=== PATIENT | female | born 1985 | race American Indian/Alaskan Native ===

== ENCOUNTER 2017-02-05 22:39 | Inpatient (IN) | payer OTHER ==
[2017-02-05] MEDS ORDERED: Nalbuphine 10 MG/1 ML Vial IM ONE ×2 (23:46→23:49)
[2017-02-06] MEDS ORDERED: Misoprostol 400 MCG (4 X 100 MCG TAB) RECTAL PRN (01:21)
[2017-02-06] MEDS ORDERED: Methylergonovine 0.2 MG/1 ML Amp IM PRN (01:21)
[2017-02-06] MEDS ORDERED: Lidocaine 1% 30 ML SDV INJECT PRN (01:21)
[2017-02-06] MEDS ORDERED: Penicillin G Potassium 5 MILLUNITS in Sodium Chloride 0.9% 100 ML IV ONE (01:21)
[2017-02-06] MEDS ORDERED: Lactated Ringers 500 ML IV ONE (01:21)
[2017-02-06] MEDS ORDERED: Acetaminophen 325 MG Tab PO PRN ×2 (01:21→16:56)
[2017-02-06] MEDS ORDERED: Sodium Chloride 0.9% 10 ML Syringe FLUSH PRN (01:21)
[2017-02-06] MEDS ORDERED: Carboprost Tromethamine 250 MCG/1 ML Amp IM PRN (01:21)
[2017-02-06] MEDS: Lactated Ringers 1,000 ML IV SCH ×5 (02:26→21:01)
[2017-02-06] MEDS: Penicillin G Potassium 3 MILLUNITS in Sodium Chloride 0.9% 100 ML IV SCH ×4 (04:34→14:33)
--- NOTE | 2017-02-06 06:04 | HP ---
CHIEF COMPLAINT: Increased force and frequency of contractions. HISTORY OF PRESENT ILLNESS: The patient is a 31-year-old, G1, P0, currently at 38 and 0/7th weeks based on 17-week ultrasound, who was seen in the office yesterday complaining of contractions that had started about 3 o'clock in the morning about every 8-10 minutes, mostly in her back and rating as high as an 8/10 in intensity, but looks fairly comfortable during the clinic visit, and cervix was 3 cm dilated, 75% effaced. She presents back to Labor and Delivery late in the night reporting increased force and frequency of contractions and increase in the back pain and even more in the front abdomen. No leakage of fluid or vaginal bleeding. movement has been good. She is now much more uncomfortable with these contractions and in much more pain overall consistent with labor. Cervix examined by the nurse and remained essentially unchanged from the clinic visit, so she was given 20 mg of Nubain IM which helped her to be able to relax a little bit and relieve her of some of the pain. I rechecked her cervix, and she is about 4+ cm dilated, therefore being admitted to the hospital for labor. course has been good and overall fairly unremarkable. She has gestational diabetes, but has had very well diet controlled. She is group B strep positive and aware that she needs antibiotics in Labor, and now plans on . labs show blood type O positive, rubella nonimmune, RPR nonreactive. Urine culture was negative. Hepatitis B negative. HIV negative. Gonorrhea and chlamydia negative. TSH normal. Hepatitis C negative. Wet prep negative. Glucose tolerance test, the screen was 157, the 3-hour test abnormal for 1-hour of 195 and a 2-hour of 159. She did not have a quad screen performed, and she is group B strep positive as listed. Medication exposures this include acyclovir, vitamins, Flonase, Benadryl, Augmentin, Acanya, and Diflucan. PAST MEDICAL HISTORY: Has ears pierced. No tattoos, IV drug use, or prior transfusions. Had chickenpox as a child. Does not tolerate hormonal contraceptives well. Has a history of kidney stones, obesity. Menarche at age 13 with menses every 30 days and a history of recurrent cold sores, which are limited to the oral area and no herpetic lesions of the genitalia. PAST SURGICAL HISTORY: Cholecystectomy in 2002. FAMILY HISTORY: Father with kidney stones; heart disease requiring stenting at age 51; hypertension; and diabetes. Mother with kidney stones, diabetes, antiphospholipid antibody syndrome, stroke because of her clotting disorder as well as breast cancer diagnosed at age 53 which is during the course of this patient's . She has a sister with a history of recurrent miscarriages and diabetes. She has a brother with no known health problems. Maternal grandmother with type 2 diabetes, liver cancer as well as pancreas and small bowel. Maternal grandfather with diabetes and heart disease, he has 4 stents. Paternal grandmother with breast cancer and history of delivering twins. Paternal grandfather with a heart attack at age 52 and diabetes. SOCIAL HISTORY: The patient is to Hal, and they got in February of 2016. 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 Hal is an genetics teacher and teaches [place] in [place], grades 8 through 12. His family history overall is negative as well. MEDICATIONS: Currently include vitamin and just recently finished some acyclovir. ALLERGIES: Morphine causes shortness of breath, wheezing, chest tightness, blistering, skin eruptions, and [employer] also causes other reactions. REVIEW OF SYSTEMS: Denies any headaches, blurry vision, chest pain, shortness of breath, right upper quadrant pain, or change in her edema. No dysuria, constipation, diarrhea, vomiting, or blurry vision. No other reported new problems. PHYSICAL EXAMINATION: General: This is a pleasant well-appearing, 31-year-old female. Vital Signs: Blood pressure 127/78, pulse of 70, and temp 98.1. HEENT: Grossly unremarkable. Heart: Regular without obvious murmur. Lungs: Clear to auscultation bilaterally. Abdomen: Gravid, soft, nontender. Uterine contractions are tracing about every 4 to 5 minutes, and the patient appears very uncomfortable with these and much more intense than they were this afternoon. heart tracings 140 beats per minute at baseline with moderate [id number] variability and accelerations noted. Vaginal exam 3 cm, 75%, and -1 per nurse's exam. After I checked her again a couple of hours later, she was 4+ cm, about 75%, and -1 station, but bulging bag of water now palpated. Extremities: Trace edema. No erythema or tenderness noted. LABORATORIES: Hemoglobin is 12.5 and platelets 245. PLAN: The patient will be admitted to the hospital to Labor and Delivery after we get her penicillin going, I can perform artificial rupture to keep her labor progressing. Anticipate she will be wanting an intrathecal, but we will try to hold off on that as we can so as to hopefully avoid needing 2 intrathecals prior to delivery. The patient's position is currently OP, and I have counseled her and her family on this fact which unfortunately does frequently translate to a hard longer labor and more pushing and also increased risk of section. They verbalized understanding and her questions were answered. [facility] /[id number]
[2017-02-06] MEDS ORDERED: fentaNYL 100 MCG/2 ML SDV IVPUSH ONE ×2 (06:24→15:23)
[2017-02-06] MEDS: Ondansetron 4 MG/2 ML SDV IV PRN ×2 (06:43→11:43)
[2017-02-06] MEDS ORDERED: fentaNYL 100 MCG/2 ML SDV ONE ×2 (08:05→16:25)
[2017-02-06] MEDS ORDERED: Lidocaine 1% 30 ML SDV ONE (08:47)
[2017-02-06] MEDS ORDERED: fentaNYL 100 MCG/2 ML SDV ITHECAL ONE (09:00)
[2017-02-06] MEDS ORDERED: Phenylephrine 1% 10 MG/ML SDV ONE (09:04)
[2017-02-06] MEDS: Oxytocin/Normal Saline 30 UNIT/500 ML BAG IV SCH ×2 (09:23→18:45)
--- NOTE | 2017-02-06 09:24 | PCM.PRNOTE ---
- Free Text/Narrative Note: Called to place intrathecal for pain management in this labor patient. After consent signed, and monitors on, proceeded. With patient in sitting position, sterile prep/drape. Skin wheal at L3-4 and L4-5 with 1% lidocaine, LP X multiple attempts - 1st attempt at L4-5, positive clear CSF, but some blood tinge that d/t being unable to aspirate, was unable to clear, so moved to L3-4. Multiple attempts at this level, as unable to palpate spinous process there and pt unable to get into good position. After multiple attempts, positive, clear, free flowing CSF without paresthesia or heme, so 20 mcg sufenta plus 30 mcg of fentanyl plus 6 mg (0.8 ml) mpf hyperbaric 0.75% spinal marcaine plus 0.4 ml preservative free saline with epinephrine wash. FHT's stable, but SBP dropped to around 90, with HR above 100 so gave patient 100mcg of neosynephrine iv to good effect - SBP 130. Pt reported no discomfort with subsequent contractions.
--- NOTE | 2017-02-06 12:48 | PCM.POSTAN ---
POST ANESTHESIA ASSESSMENT - MENTAL STATUS Mental Status: alert - VITAL SIGNS Pulse Rate: 72 SaO2: 99 Blood Pressure: 127/76 Temperature: 37.7 C - RESPIRATORY Respiratory Status: respiratory rate WNL - CARDIOVASCULAR CV Status: pulse rate WNL - GASTROINTESTINAL GI Status: nauseau - PAIN Pain Score: 0 - POST OP HYDRATION Hydration Status: adequate & stable (iv fluids. tolerating ice chips. some nausea, partly relieved with medication No c/o PDPH at this time. At this time , no post anesthesia complications noted)
--- NOTE | 2017-02-06 13:02 | PN ---
DATE: 02/06/2017 SUBJECTIVE: The patient has been able to get some rest since having her intrathecal earlier this morning. Reports that the pain continues to be primarily in the back versus the contractions type of pain and becoming more tired and just generally a little frustrated with not having delivered as of yet. OBJECTIVE: Vital Signs have remained stable. Pulse of 83, blood pressure 121/78, and O2 saturations 99%. She is afebrile. monitoring strip shows baseline heart rate in the 150s with moderate [id number]-[id number] variability. Accelerations are noted, but also a number of variables. No decelerations. Judson tracing contractions with some difficulty about every 3-5 minutes, really depending on what part of the strip you look at. Cervix re-examined and essentially unchanged. She remains at 6 cm dilated, 90% effaced, and about -1 station right now. Artificial rupture of membranes was performed at 9:55 this morning with good return of clear fluid and this was after her intrathecal. Pitocin was also initiated at 9:22 and IUPC just placed here at approximately 12:25. Prior to placing the IUPC, I discussed with the patient and her , potential risks, indications, and benefits of IUPC placement including disturbance to the baby, potential uterine perforation, potential bleeding complications, also the need to further determine the strength of her contractions and if her labor is actually adequate enough to be anticipating vaginal delivery or if we need to push things further, also amnio infusion availability because of the variables. Discussed with her potential with proceeding for section if her labor is inadequate and we cannot get her into sufficient labor or if she is not in labor and we need to just stay at course. ASSESSMENT: 1. 1, para 0, currently at 38 weeks gestation, group B streptococcus positive and is receiving her penicillin for prophylaxis. Numerous variables on monitoring tracing, stage I labor is not progressing at this time. However, I strongly feel that is going to be because of insufficient contraction strength. 2. Rubella nonimmune. 3. Blood type O positive. 4. Diet-controlled gestational diabetes. 5. History of oral herpes. 6. Obesity. PLAN: We will see what the IUPC is getting for tracing of the contractions and increased Pitocin as we are able still trying for vaginal delivery. The patient and her 's questions have been answered. [facility] /[id number]
[2017-02-06] MEDS ORDERED: Sodium Chloride 0.9% 1,000 ML IV SCH (15:30)
[2017-02-06] MEDS ORDERED: Citric Acid/Sodium Citrate Solution 30 ML Cup PO ONE (16:03)
[2017-02-06] MEDS ORDERED: ceFAZolin 2 GM in Premix Bag 1 BAG IV ONE (16:03)
[2017-02-06] MEDS ORDERED: Oxytocin/Normal Saline 60 UNIT/1,000 ML BAG ONE (16:32)
[2017-02-06] MEDS ORDERED: Bupivacaine 0.75%/D5W 2 ML Amp ONE (16:44)
[2017-02-06] MEDS ORDERED: ePHEDrine 50 MG/ML SDV IVPUSH PRN (16:56)
[2017-02-06] MEDS ORDERED: Naloxone 2 MG/2 ML Syringe IVPUSH PRN (16:56)
[2017-02-06] MEDS ORDERED: Acetaminophen/oxyCODONE 325-5 MG Tab PO PRN (16:56)
[2017-02-06] MEDS ORDERED: Measles, Mumps & Rubella Vaccine 0.5 ML SDV SUBCUT ONE (16:56)
[2017-02-06] MEDS ORDERED: diphenhydrAMINE 50 MG/ML SDV IVPUSH PRN (16:56)
[2017-02-06] MEDS ORDERED: Ibuprofen 800 MG Tab PO PRN (16:56)
[2017-02-06] MEDS ORDERED: Phenylephrine 1% 10 MG/ML SDV IV ONE (17:14)
[2017-02-06] MEDS ORDERED: Propofol 200 MG/20 ML SDV IV ONE (17:14)
[2017-02-06] MEDS ORDERED: Ondansetron 4 MG/2 ML SDV IV ONE (17:14)
[2017-02-06] MEDS ORDERED: HYDROmorphone 1 MG/ML Syringe IV ONE (17:14)
[2017-02-06] MEDS ORDERED: Promethazine 25 MG/ML SDV IV ONE (17:14)
[2017-02-06] MEDS ORDERED: Lidocaine 2% 20 ML MDV INJECT ONE (17:14)
[2017-02-06] MEDS ORDERED: Succinylcholine 200 MG/10 ML MDV IV ONE (17:14)
[2017-02-06] MEDS ORDERED: Meperidine PF 50 MG/ML Syringe IV ONE (17:14)
[2017-02-06] MEDS ORDERED: Oxytocin/Normal Saline 30 UNIT/500 ML BAG IV ONE (17:14)
[2017-02-06] MEDS ORDERED: fentaNYL 100 MCG/2 ML SDV IV ONE (17:14)
[2017-02-06] MEDS ORDERED: Midazolam 1 MG/ML 2 ML SDV IV ONE (17:14)
[2017-02-06] MEDS ORDERED: Lactated Ringers 3,000 ML IV ONE (17:14)
[2017-02-06] MEDS ORDERED: Meperidine PF 50 MG/ML Syringe ONE (18:45)
[2017-02-06] MEDS ORDERED: HYDROmorphone 1 MG/ML Syringe ONE (19:10)
[2017-02-06] MEDS ORDERED: Promethazine 25 MG/ML SDV ONE (19:10)
[2017-02-06] MEDS ORDERED: Promethazine 25 MG/ML SDV IM PRN (19:50)
--- NOTE | 2017-02-06 20:17 | PCM.PREANE ---
Preanesthetic Assessment - Anesthesia/Transfusion/Family Hx Anesthesia History: Prior Anesthesia Without Reaction Family History of Anesthesia Reaction: No Transfusion History: No Prior Transfusion(s) Intubation History: Unknown - Review of Systems General: No Symptoms Pulmonary: No Symptoms Cardiovascular: No Symptoms Gastrointestinal: No symptoms Neurological: No Symptoms Other: Reports: None - Physical Assessment NPO Status Date: 02/06/17 NPO Status Time: 06:00 Pulse: 72 O2 Sat by Pulse Oximetry: 99 Respiratory Rate: 16 Blood Pressure: 127/76 Temperature: 37.7 C Vital Signs: Last Vital Signs Temp 36.9 C 02/06/17 20:00 Pulse 87 02/06/17 20:00 Resp 16 02/06/17 20:00 BP 131/74 02/06/17 20:00 Pulse Ox 100 02/06/17 18:45 Height: 1.68 m Weight: 92.079 kg ASA Class: 2 Mental Status: Alert & Oriented x3 Airway Class: Mallampati = 2 Dentition: Reports: Normal Dentition Thyro-Mental Finger Breadths: 3 Mouth Opening Finger Breadths: 3 ROM/Head Extension: Full Lungs: Clear to auscultation, Normal respiratory effort Cardiovascular: Regular Rate, Regular Rhythm - Lab Values: Laboratory Last Values WBC 14.0 10^3/uL (5.0-10.0) H 02/06/17 01:38 RBC 3.91 10^6/uL (4.2-5.4) L 02/06/17 01:38 Hgb 12.5 g/dL (12.0-16.0) 02/06/17 01:38 Hct 36.7 % (37.0-47.0) L 02/06/17 01:38 MCV 93.9 fL (80-100) 02/06/17 01:38 MCH 32.0 pg (27.0-34.0) 02/06/17 01:38 MCHC 34.1 g/dL (33.0-35.0) 02/06/17 01:38 Plt Count 245 10^3/uL (150-450) 02/06/17 01:38 Blood Type O POSITIVE 02/06/17 01:38 Gel Antibody Screen Negative 02/06/17 01:38 Crossmatch See Detail 02/06/17 01:38 - Allergies Allergies/Adverse Reactions: Allergies Allergy/AdvReac Type Severity Reaction Status Date / Time morphine Allergy Difficulty Verified 02/06/17 02:29 Breathing dairy Allergy Diarrhea Uncoded 05/14/15 16:23 - Blood Blood Available: No Product(s) Available: None - Anesthesia Plan Pre-Op Medication Ordered: Antacids - Acknowledgements Anesthesia Type Planned: General Anesthesia, Spinal Pt an Appropriate Candidate for the Planned Anesthesia: Yes Alternatives and Risks of Anesthesia Discussed w Pt/Guardian: Yes Pt/Guardian Understands and Agrees with Anesthesia Plan: Yes Additional Comments: Earlier Intrathecal attempt was difficult. Patient understands another attempt at Intrathecal for proposed Section will be made and general anesthesia will be second choice if Intrathecal attempt failed. Patient agrees. 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: , Other (See Below) Other OB/BYN History: hx ascus pap with hpv Endocrine/Metabolic History: Reports: Diabetes, Gestational Other Dermatologic History: acne, recurrent cold sores - Infectious Disease History Infectious Disease History: Reports: Chicken Pox - Past Surgical History GI Surgical History: Reports: Cholecystectomy - SUBSTANCE USE Smoking Status *Q: Never Smoker Tobacco Use Within Last Twelve Months: No Second Hand Smoke Exposure: No Days Per Week of Alcohol Use: 0 Recreational Drug Use History: No - HOME MEDS Home Medications: Home Meds Calcium Carbonate/Vitamin D3 [Calcium 500 + Vit D Caplet] 1 each PO DAILY [History] Vit W-Ca,Fe,FA(<1 mg) [ Vitamins] 1 each PO DAILY 12/19/16 [ History] - CURRENT (IN HOUSE) MEDS Current Meds: Current Medications Acetaminophen (Tylenol) 650 mg PO Q4H PRN PRN Reason: Pain (Mild 1-3) and fever Acetaminophen (Tylenol) 650 mg PO Q6H PRN PRN Reason: mild pain or fever Carboprost Tromethamine (Hemabate Ds) 250 mcg IM ASDIRECTED PRN PRN Reason: HEMORRHAGE Diphenhydramine HCl (Benadryl) 25 mg IVPUSH Q6H PRN PRN Reason: Itching or Nausea Docusate Sodium (Colace) 100 mg PO Q12H PRN PRN Reason: Constipation Ephedrine Sulfate (Ephedrine Sulfate) 5 mg IVPUSH SEECOMMENT PRN PRN Reason: Other Ferrous Sulfate (Ferrous Sulfate) 325 mg PO BRK L[place]RAINE Hydromorphone HCl (Dilaudid) 0.25 mg IVPUSH Q4H PRN PRN Reason: Pain (moderate 4-6) Lactated Ringer's (Ringers, Lactated) 1,000 mls @ 125 mls/hr IV ASDIRECTED [facility] Last Admin: 02/06/17 19:13 Dose: 125 mls/hr Penicillin G Potassium 3 (millunits/ Sodium Chloride) 100 mls @ 200 mls/hr IV Q4HR [facility] Last Admin: 02/06/17 14:33 Dose: 200 mls/hr Oxytocin/Sodium Chloride (Pitocin In Ns 30 Unit/500 Ml) 30 unit in 500 mls @ 500 mls/hr IV TITRATE LORRAINE; 500 MUNITS/MIN PRN Reason: Protocol Last Admin: 02/06/17 18:45 Dose: 125 mls/hr Sodium Chloride (Normal Saline) 1,000 mls @ 250 mls/hr IV ASDIRECTED [facility] Lactated Ringer's (Ringers, Lactated) 1,000 mls @ 125 mls/hr IV ASDIRECTED [facility] Ibuprofen (Motrin) 800 mg PO Q8H PRN PRN Reason: mild pain or fever Ketorolac Tromethamine (Toradol) 15 mg IVPUSH Q6H [facility] Stop: 02/07/17 05:01 Lidocaine HCl (Xylocaine-Mpf 1%) 10 ml INJECT ASDIRECTED PRN PRN Reason: Perineal Repair Methylergonovine Maleate (Methergine) 0.2 mg IM ASDIRECTED PRN PRN Reason: Hemorrhage Misoprostol (Cytotec) 800 mcg RECTAL ASDIRECTED PRN PRN Reason: Hemorrhage Naloxone HCl (Narcan) 0.1 mg IVPUSH SEECOMMENT PRN PRN Reason: Respiratory Depression Ondansetron HCl (Zofran) 4 mg IV Q4H PRN PRN Reason: Nausea/Vomiting Last Admin: 02/06/17 11:43 Dose: 4 mg Oxycodone/Acetaminophen (Percocet 325-5 Mg) 1 tab PO Q4H PRN PRN Reason: Pain (moderate 4-6) Oxycodone/Acetaminophen (Percocet 325-5 Mg) 2 tab PO Q4H PRN PRN Reason: Pain (moderate 4-6) Prenat Multivit/[place]/Iron/Folic Ac ( Plus Iron) 1 each PO DAILY L[facility]RAINE Promethazine HCl (Phenergan) 12.5 mg IM Q6H PRN PRN Reason: Nausea Simethicone (Simethicone) 80 mg PO Q4H PRN PRN Reason: Gas Sodium Chloride (Saline Flush) 10 ml FLUSH ASDIRECTED PRN PRN Reason: Keep Vein Open Discontinued Medications Bupivacaine HCl/Dextrose (Marcaine 0.75% Spinal) Confirm Administered Dose 2 ml .ROUTE .STK-MED ONE Stop: 02/06/17 16:45 Citric Acid/Sodium Citrate (Bicitra Solution) 30 ml PO ONETIME ONE Stop: 02/06/17 16:04 Fentanyl (Sublimaze) 50 mcg IVPUSH ONETIME ONE Stop: 02/06/17 06:25 Fentanyl (Sublimaze) Confirm Administered Dose 100 mcg .ROUTE .STK-MED ONE Stop: 02/06/17 08:06 Fentanyl (Sublimaze) 50 mcg IVPUSH ONETIME ONE Stop: 02/06/17 15:24 Last Admin: 02/06/17 15:45 Dose: 50 mcg Fentanyl (Sublimaze) Confirm Administered Dose 100 mcg .ROUTE .STK-MED ONE Stop: 02/06/17 16:26 Hydromorphone HCl (Dilaudid) Confirm Administered Dose 1 mg .ROUTE .STK-MED ONE Stop: 02/06/17 19:11 Lactated Ringer's (Ringers, Lactated) 500 mls @ 999 mls/hr IV .BOLUS ONE Stop: 02/06/17 01:51 Last Admin: 02/06/17 08:20 Dose: 999 mls/hr Penicillin G Potassium 5 (millunits/ Sodium Chloride) 100 mls @ 200 mls/hr IV ONETIME ONE Stop: 02/06/17 01:50 Last Admin: 02/06/17 02:26 Dose: 200 mls/hr Cefazolin Sodium/Dextrose 2 gm (/ Premix) 50 mls @ 100 mls/hr IV ONETIME ONE Stop: 02/06/17 16:32 Last Admin: 02/06/17 17:42 Dose: 100 mls/hr Oxytocin/Sodium Chloride (Pitocin In Ns 30 Unit/500 Ml) Confirm Administered Dose 60 unit in 1,000 mls @ as directed .ROUTE .STK-MED ONE Stop: 02/06/17 16:33 Ibuprofen (Motrin) 800 mg PO Q8H PRN PRN Reason: mild pain or fever Lidocaine HCl (Xylocaine-Mpf 1%) Confirm Administered Dose 30 ml .ROUTE .STK- MED ONE Stop: 02/06/17 08:48 Last Admin: 02/06/17 08:50 Dose: 30 ml Measles/Mumps/Rubella Vaccine Live (M-M-R Ii Vaccine) 0.5 ml SUBCUT .ONCE ONE Stop: 02/06/17 16:57 Meperidine HCl (Demerol) Confirm Administered Dose 50 mg .ROUTE .STK-MED ONE Stop: 02/06/17 18:46 Nalbuphine HCl (Nubain) 10 mg IM ONETIME ONE Stop: 02/05/17 23:47 Last Admin: 02/06/17 03:38 Dose: Not Given Nalbuphine HCl (Nubain) 20 mg IM ONETIME ONE Stop: 02/05/17 23:50 Last Admin: 02/05/17 23:59 Dose: 20 mg Phenylephrine HCl (Jong-Synephrine) Confirm Administered Dose 10 mg .ROUTE .STK- MED ONE Stop: 02/06/17 09:05 Promethazine HCl (Phenergan) Confirm Administered Dose 25 mg .ROUTE .STK-MED ONE Stop: 02/06/17 19:11 Sufentanil Citrate (Sufenta) Confirm Administered Dose 50 mcg .ROUTE .STK-MED ONE Stop: 02/06/17 08:06
[2017-02-06] MEDS: HYDROmorphone 1 MG/ML Syringe IVPUSH PRN (20:29)
[2017-02-06] MEDS: Acetaminophen/oxyCODONE 325-5 MG Tab PO PRN (21:44)
[2017-02-06] MEDS: Ferrous Sulfate 325 MG Tab PO SCH (23:18)
--- NOTE | 2017-02-07 00:11 | OR ---
DATE: 02/06/2017 PREPROCEDURE DIAGNOSES: 1. 1 para 0. 2. A 38 and 0/7th weeks by 17-week ultrasound. 3. Failure to progress in labor and deep recurrent variable. 4. Blood type O positive. 5. Rubella nonimmune. 6. Group B strep positive. 7. Gestational diabetes, diet controlled. 8. Oral herpes. 9. Obesity. 10.History of abnormal ASCUS on Pap smear. POSTPROCEDURE DIAGNOSES: 1. 1 para 1. 2. A 38 and 0/7th weeks by 17-week ultrasound. 3. Failure to progress in labor and deep recurrent variable. 4. Blood type O positive. 5. Rubella nonimmune. 6. Group B strep positive. 7. Gestational diabetes, diet controlled. 8. Oral herpes. 9. Obesity. 10.History of abnormal ASCUS on Pap smear. 11.Status post primary section with complicated uterine incision and delivery of viable female infant. BRIEF HISTORY: A 31-year-old female, admitted to the hospital last night for active labor which continued throughout the night and this morning, she was still a sitting around 5 cm dilated with regular contractions and primarily back labor. Since she was progressing at that time, an intrathecal was placed which was complicated and took about 45 minutes and then artificial rupture of membranes was performed, and the baby was doing well. Pitocin was initiated prior to artificial rupture and IUPC was placed as well. We were unable to get adequate MVUs. However, the cervix did not dilate beyond 6 to 7 cm and baby was not making any progress and continued to have deep variables. The patient was requesting additional pain medication and fentanyl was used and it really did not seem to help. After watching her for a few hours, she continued to make zero progress and decision was made to proceed with primary section with the details as below. CONSENT: Discussed with the patient, her , and mother. Indications, risks, benefits, and alternatives of primary section. Risk of infection, and plan for preoperative antibiotics. Risk of bleeding to the point of requiring a blood transfusion as well as its inherent risks. Risk of injury to any internal organs or adjacent structures including, but not limited to, large blood vessels, nerves, veins, fallopian tubes, ovaries, bladder, bowel adjacent structures, and even potential injury to the baby. Discussed possible for complications which would require transfer of mother and/or baby and even potential for . She agreed to proceed and appropriate consent forms were signed and can be found in the chart. Risk of procedure being done under general anesthesia if spinal cannot be obtained. SURGEON: Dr. Deya Bennett MD. PRODUCTION STAGE MANAGER: Dr. Myesha Caballero MD. A second assist called to the operating room in stat fashion to attend to the baby, Dr. Cali but he did not assist at the operating table. DESCRIPTION OF PROCEDURE: The patient was brought down to the operating room and attempt of spinal anesthesia was made and unsuccessful. We were notified that this would need to take place in a stat fashion. The patient was then laid in dorsal supine position with leftward tilt, and Brush indwelling catheter had already been in place. The abdomen was prepped in the usual fashion and drapes applied. General anesthesia was then obtained and uterine incision made at 1715 hours and carried down to the underlying fascia with blunt finger dissection. The fascia was incised with scalpel and extended bilaterally with blunt traction. Superior fascial edge elevated and rectus muscles dissected off bluntly. Inferior fascial edge grasped with Prasanna's, tented up, and rectus muscles dissected off bluntly. Rectus muscles in the midline with blunt finger dissection and peritoneal opening made with traction. Salty O retractor was placed and what was felt to be appropriate location for low uterine incision was made with scalpel and carried down with final penetration into the uterus with finger penetration and extended bilaterally using the Miranda method, attempted to bring the head up through the hysterotomy site which was unsuccessful being that we were under general anesthesia and time was of the essence. A superior T incision was then made with bandage scissors and another attempt was made to deliver the baby up through the hysterotomy site, which remained unsuccessful. The nurse put on a sterile glove and started to apply pressure to the head as well to bring it out of the pelvis while the assist was holding the baby up into the uterus to try to allow the head to come up. Dr. Caballero then made an attempt to deliver the baby from her side, and the superior T incision extended further. We were still unsuccessful. Then, the inferior uterus then underwent a T extension down toward the bladder reflection which was actually about 2.5 cm and at this point of time, I was able to deliver the head up through the hysterotomy site and then bring the baby out through the hysterotomy site. A three-vessel umbilical cord was clamped and cut and baby taken over to the warmer for further evaluation. Placenta was delivered by uterine massage and cord traction. Cord blood sample was not obtained. Hysterotomy sites were grasped with Pacheco to help control bleeding and uterus cleared of any clots and debris. Superior T extension was closed with a running lock stitch of 0 Vicryl in the usual fashion. There was some bleeding, so a second imbricating layer was placed and hemostasis appeared to be good at that time. Inferior T extension was then closed with a running lock stitch of 0 Vicryl in a typical fashion and this was also followed with a second running locked layer in order to ensure hemostasis. The normal low transverse uterine incision site was then closed by starting at the apex on the maternal right and coming into the midline, and then attention turned to the maternal left starting at the apex and a running lock stitch to the midline. There continued to be some additional sites of bleeding noted at this time on the superior T extension, so this was addressed with additional [id number] and running stitches as appropriate. The transverse incision still had some bleeding as well and so a second layer was placed across the transverse incision making sure to close the serosa and not leave any exposed myometrium. Bladder appeared to be uninjured and urine was lightly pink tinged, but no gross blood was noted and it was clearing nicely. After we felt hysterotomy site was hemostatic, the Salty retractor was removed and pericolic gutters were cleared of all clots and debris. Hysterotomy site then reinspected, irrigated, and hemostasis was good and I did do a couple of spots of cauterization to ensure adequate hemostasis of some small bleeders. We did take time to look at this carefully and ensure that it was good. The peritoneal layer was then closed in the midline with a running stitch of 1-0 Vicryl in a running fashion. This layer was then irrigated, cleared of any clots and debris, and the fascia closed with a running stitch of 0 looped PDS in the usual fashion. Subcutaneous tissue was then irrigated, cleared of any clots and debris, and verified to be hemostatic. The skin was then closed with makenna. The patient had overall tolerated the procedure well and vital signs have remained stable. Start time for surgery was 1715 hours. The baby delivered at 1719 hours and procedure stopped at 1829 hours. FLUIDS: 3450 mL of crystalloids including Pitocin. URINE OUTPUT: 900 mL clear. ESTIMATED BLOOD LOSS: 1000 mL. COMPLICATIONS: None. Great difficulty in delivering the baby out through the hysterotomy site and closed as noted above ending in good hemostatic closure. FINDINGS: Viable female infant, Apgars of 2, 5, and 9. Weight 2950 g, 6 pounds 8 ounces. Baby did require some positive pressure ventilation to help with resuscitation because of lack of respiratory effort. Heart rate remained above 100. DISPOSITION: Mother to go to the PACU at this time for recovery and then back to the room. Baby will be taken to the nursery for further evaluation. LENI /[id number] MTDD
[2017-02-07] MEDS: Lactated Ringers 1,000 ML IV SCH ×3 (00:23→18:30)
[2017-02-07] MEDS: HYDROmorphone 1 MG/ML Syringe IVPUSH PRN ×3 (00:29→10:36)
[2017-02-07] MEDS: Acetaminophen/oxyCODONE 325-5 MG Tab PO PRN ×5 (01:56→21:58)
[2017-02-07] MEDS ORDERED: Ketorolac 30 MG/ML SDV IVPUSH ONE (06:36)
[2017-02-07] MEDS: Ondansetron 4 MG/2 ML SDV IV PRN (06:40)
[2017-02-07] MEDS: Penicillin G Potassium 3 MILLUNITS in Sodium Chloride 0.9% 100 ML IV SCH ×2 (07:05→07:06)
[2017-02-07] MEDS: ceFAZolin 1 GM in Premix Bag 1 BAG IV SCH ×3 (07:40→22:19)
[2017-02-07] MEDS: Simethicone 80 MG Tab.Chew PO PRN ×4 (10:07→21:52)
[2017-02-07] MEDS: Ferrous Sulfate 325 MG Tab PO SCH (10:09)
--- NOTE | 2017-02-07 13:36 | PCM.POSTAN ---
POST ANESTHESIA ASSESSMENT - MENTAL STATUS Mental Status: alert, oriented - VITAL SIGNS Pulse Rate: 85 SaO2: 99 Resp Rate: 18 Blood Pressure: 128/72 Temperature: 97.8 C - RESPIRATORY Respiratory Status: respiratory rate WNL, airway patent, O2 saturation stable - CARDIOVASCULAR CV Status: pulse rate WNL, blood pressure stable - GASTROINTESTINAL GI Status: no symptoms, nauseau - PAIN Pain Score: 3 - POST OP HYDRATION Hydration Status: adequate & stable (iv fluids. tolerating ice chips. some nausea, partly relieved with medication No c/o PDPH at this time. At this time , no post anesthesia complications noted) - OBSERVATIONS Free Text/Narrative:: Patient is in bed c/o back pain her wound pain is under control. Moving her lower extremities and had a fair night.
[2017-02-07] MEDS: Ketorolac 30 MG/ML SDV IVPUSH SCH ×4 (14:04→23:25)
[2017-02-07] MEDS: Docusate Sodium 100 MG Cap PO PRN ×2 (14:05→21:52)
[2017-02-07] MEDS: Prenatal Multivitamin with Calcium/Folic Acid/Iron Tab PO SCH (14:53)
[2017-02-08] MEDS: Ketorolac 30 MG/ML SDV IVPUSH SCH (02:29)
[2017-02-08] MEDS: Simethicone 80 MG Tab.Chew PO PRN ×5 (02:35→19:35)
[2017-02-08] MEDS: Acetaminophen/oxyCODONE 325-5 MG Tab PO PRN ×4 (02:35→22:28)
[2017-02-08] MEDS ORDERED: Ibuprofen 800 MG Tab PO PRN (06:00)
--- NOTE | 2017-02-08 08:53 | PN ---
DATE: 02/07/2017 SUBJECTIVE: Postoperative day #1, 31-year-old female, status post primary section with complications including a cross type of uterine incision. The patient has not been up out of bed as would be expected, feels quite fatigued today. Denies any shortness of breath or chest pain. Not certain about any lightheadedness and she has not really been up yet. Brush catheter remains in place. She is working on breast-feeding and hoping that goes better. Otherwise, denies other acute concerns and mood remains positive, bleeding has been minimal, and she is passing some flatus. OBJECTIVE: Vital Signs: Temperature is 98.9, pulse 79, blood pressure 111/73, respiratory rate of 16, O2 saturations of 97% on room air. Heart: Regular without obvious murmur. Lungs: Clear to auscultation bilaterally. Abdomen: Soft and nontender. Positive bowel sounds are auscultated. Dressing is clean, dry, and intact. Fundus is firm and below the umbilicus. Extremities: SCDs and LIZ hose are on. Pedal pulses are equal. There is no edema or tenderness noted. LABORATORY DATA: Hemoglobin down to 8.3 today, platelets of 192, and white cell count of 14.7. ASSESSMENT: 1. Status post traumatic section. 2. Anemia of acute blood loss. 3. 1, now para 1. 4. Mild obesity. 5. History of oral herpes. PLAN: At this time, plan on normal postoperative cares today, anticipate that she will be up quite a bit more today and will be able to get the Brush catheter out and see how she does. Continue to recheck CBC as indicated and in the morning. Discussed with her there is still possibility of blood transfusion if she does not seem to be tolerating things very well from her blood loss. She verbalizes understanding hoping that she will not need the transfusion and she is less tired later today after she has some adequate rest. [facility] /[id number] ADIA
--- NOTE | 2017-02-08 08:56 | PN ---
DATE: 02/08/2017 Postoperative day #2. SUBJECTIVE: A 31-year-old female, status post complicated primary section 2 days ago, reports complaints of still feeling extreme fatigue and just not coming back from her surgery as would be expected. She was up twice last night, but not having enough energy to really feel like she could get around and nurses are also concerned that she is just not coming around the way that she should with her energy levels. She has a little bit of shortness of breath, but no chest pain. She has some lightheadedness and passing flatus. Brush catheter still in place. Working on breast-feeding with her baby and otherwise has no specific concerns or complaints. OBJECTIVE: Vital Signs: Temperature is 98.8, pulse 76, blood pressure 107/61, respiratory rate of 18, and O2 saturations 95% on room air. HEART: Regular without obvious murmur. LUNGS: Clear bilaterally. ABDOMEN: Soft, and bowel sounds are positive. The uterus is firm and below the umbilicus. Dressing is clean, dry, and intact. Vaginal bleeding has been reported as minimal. Extremities: SCDs are on. Pedal pulses are equal. No tenderness and no edema. LABORATORY DATA: Shows a hemoglobin this morning of 7.9, platelets of 200, white blood cell count of 15.3. ASSESSMENT: 1. Postoperative day #2, status post complicated section. 2. Anemia of acute blood loss, which is symptomatic and hemoglobin is less than 8. 3. 1, now para 1, delivered at 38 weeks' gestation. 4. History of gestational diabetes, diet controlled. 5. History of oral herpes. 6. Obesity. PLAN: At this time, we will order 2 units of packed red blood cells for transfusion. I have discussed with the patient indications risks, benefits, and alternatives. Her primary concern is potential for transfusion reaction. Discussed with her how that would be managed and it is a quite rare occurrence. Also, discussed with her potential for contraction of blood-borne disease such as HIV or hepatitis C and that the blood is screened very well and risk of that is also extremely low. Her questions have been answered and we will get the appropriate consent form in the chart. [facility] /[id number]
[2017-02-08] MEDS: Docusate Sodium 100 MG Cap PO PRN ×2 (09:23→19:37)
[2017-02-08] MEDS: Ferrous Sulfate 325 MG Tab PO SCH (09:23)
[2017-02-08] MEDS: Prenatal Multivitamin with Calcium/Folic Acid/Iron Tab PO SCH (09:24)
[2017-02-08] MEDS: Ibuprofen 800 MG Tab PO PRN ×2 (10:45→19:36)
[2017-02-09] MEDS: Ibuprofen 800 MG Tab PO PRN ×2 (04:09→12:37)
[2017-02-09] MEDS: Acetaminophen/oxyCODONE 325-5 MG Tab PO PRN ×3 (04:10→14:24)
[2017-02-09] MEDS: Docusate Sodium 100 MG Cap PO PRN (09:16)
[2017-02-09] MEDS: Ferrous Sulfate 325 MG Tab PO SCH (09:16)
[2017-02-09] MEDS: Prenatal Multivitamin with Calcium/Folic Acid/Iron Tab PO SCH (09:16)
[2017-02-09] MEDS: Simethicone 80 MG Tab.Chew PO PRN (09:23)
[2017-02-09 13:23] VITALS: BP 112/60
--- NOTE | 2017-02-20 08:28 | DISCH ---
ADMITTING DIAGNOSES: 1. 1, para 0. 2. A 38 and 0/7th weeks' gestation by 17-week ultrasound. 3. Gestational diabetes, diet controlled. 4. History of oral herpes. 5. Obesity. 6. Blood type O positive, rubella nonimmune, and group B strep positive. 7. Atypical squamous cells of undetermined significance on Pap smear. DISCHARGE DIAGNOSES: 1. 1, para 1-0-0-1. 2. A 38 and 0/7th weeks' gestation by 17-week ultrasound. 3. Gestational diabetes, diet controlled. 4. History of oral herpes. 5. Obesity. 6. Blood type O positive, rubella nonimmune, and group B strep positive. 7. Atypical squamous cells of undetermined significance on Pap smear. 8. Status post primary section with complicated uterine incision. 9. Failure to progress in stage I of labor. 10.Anemia of acute blood loss. 11.Status post blood transfusion. BRIEF HISTORY: A 31-year-old female, presented to the hospital with spontaneous onset of labor, which was augmented with Pitocin and artificial rupture of membranes performed and eventually IUPC placed. Despite this and active management of labor, we were unable to get her to stage II and after about 24 hours of stage I, proceeded with primary section. They were unable to obtain spinal anesthesia, so the procedure was performed under general and complicated by a transverse uterine incision that was higher than expected and ended up being extended superior and inferiorly in a T fashion, therefore making her a non- candidate. After surgery, she did well and her pain was managed. She was having symptoms of severe anemia and hemoglobin had dropped down to 7.9, and a blood transfusion ordered after which she started to feel better and final discharge hemoglobin of 10.0. Her admission hemoglobin was 12.5. On day of discharge, she was ambulating, tolerating regular diet, still complaining of being tired without having any shortness of breath or dizziness and managing her anemia fairly well. Bleeding had been minimal. She was bonding with her baby and struggling with . DISCHARGE CONDITION: Good. PHYSICAL EXAMINATION: Vital Signs: Temperature is 97.8, pulse 84, blood pressure 112/60, respiratory rate of 16, and O2 saturations 96% on room air. Heart: Regular without murmur. Lungs: Clear to auscultation bilaterally. Abdomen: Soft, nontender. Fundus is firm and below the umbilicus. Incision site is clean, dry, and intact. Extremities: Trace edema. No erythema or tenderness noted. DISPOSITION: Home with family. FOLLOWUP: She will be seen in the office in the next 5 to 7 days for recheck of her incision and staple removal. DISCHARGE INSTRUCTIONS: No lifting anything over 15 pounds and pelvic rest for [address] until she is off the narcotic. She needs to return if she has any foul-smelling drainage, discharge, fever, chills, increased pain, or other concerning symptoms. DISCHARGE MEDICATIONS: 1. Ibuprofen 600 mg every 6 hours as needed for pain. 2. Percocet 5/325 mg one to two tablets every 4 to 6 hours as needed for pain. 3. Colace 100 mg twice daily. 4. Iron 325 mg twice daily. 5. Vitamin C 500 mg twice daily. [facility] /[id number] MTDD
== END 2017-02-09 17:15 | disposition home or self-care (01) | DRG 765 ==
LOC: DL.OBCHECK 22:39 → DL.OB 02-06 01:27 → DL.MS 02-06 16:54 → OBSVTOIN 02-06 17:20
PROVIDERS: ADMIT Family Medicine; ATTEND Family Medicine
PROC: 10D00Z1 Extraction of Products of Conception, Low, Open Approach (ICD-10-PCS; principal; 2017-02-06)
PROC: 10907ZC Drainage of Amniotic Fluid, Therapeutic from Products of Conception, Via Natural or Artificial Opening (ICD-10-PCS; 2017-02-06)
PROC: 00HU33Z Insertion of Infusion Device into Spinal Canal, Percutaneous Approach (ICD-10-PCS; 2017-02-06)
PROC: 3E0R3CZ (ICD-10-PCS; 2017-02-06)
PROC: 30233N1 Transfusion of Nonautologous Red Blood Cells into Peripheral Vein, Percutaneous Approach (ICD-10-PCS; 2017-02-08)
DX: O99.824 Streptococcus B carrier state complicating childbirth (principal); D62 Acute posthemorrhagic anemia; Z3A.38 38 weeks gestation of pregnancy; Z37.0 Single live birth; O24.420 Gestational diabetes mellitus in childbirth, diet controlled; O99.214 Obesity complicating childbirth; E66.09 Other obesity due to excess calories; O62.0 Primary inadequate contractions; Z88.6 Allergy status to analgesic agent
CPT/HCPCS: 36415; 36430; 85027; 86850; 86900; 86901; 86920; 86922; 90707; A9270-GY; J0330; J0690; J1170; J1885; J2175; J2250; J2300; J2370; J2405; J2540; J2550; J2590; J2704; J3010; J7030; J7050; J7120; P9016

== ENCOUNTER 2018-01-03 12:14 | Emergency (ER) | payer OTHER ==
[2018-01-03 12:27] VITALS: BP 128/95
[2018-01-03 13:40] LABS: CHLORIDE,CL 106 mmol/L (101-111); SODIUM,NA 138 mmol/L (135-145)
--- NOTE | 2018-01-03 13:57 | EDM.PDOC ---
ED HPI GENERAL MEDICAL PROBLEM - General Chief Complaint: Respiratory Problem Stated Complaint: [id number] SOB Time Seen by Provider: 01/03/18 12:25 Source of Information: Reports: Patient History Limitations: Reports: No Limitations - History of Present Illness INITIAL COMMENTS - FREE TEXT/NARRATIVE: This 32 yo female patient reports to the ED with increased shortness of breath, head congestion and some numbness in her face. The patient reports she started to have symptoms while she was driving. The patient does not have a history of anxiety, but she has been under a lot of stress lately. 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 Onset: Today Duration: Minutes:, Improving Location: Reports: Face, Chest Quality: Reports: Other Severity: Moderate Improves with: Reports: None Worsens with: Reports: None Associated Symptoms: Reports: No Other Symptoms - Related Data Allergies Allergy/AdvReac Type Severity Reaction Status Date / Time morphine Allergy Difficulty Verified 01/03/18 12:26 Breathing dairy Allergy Diarrhea Uncoded 01/03/18 12:26 Home Meds: Home Meds Calcium Carbonate/Vitamin D3 [Calcium 500 + Vit D Caplet] 1 each PO DAILY [History] Vit W-Ca,Fe,FA(<1 mg) [ Vitamins] 1 each PO DAILY 12/19/16 [ History] Ibuprofen [IJD: Ibuprofen] 600 mg PO Q8H PRN #30 tablet 02/09/17 [Rx] Acetaminophen [Tylenol Extra Strength] 500 mg PO ASDIRECTED PRN 01/03/18 [ History] Past Medical History HEENT History: Reports: Impaired Vision Other HEENT History: wears glasses, just got them a week ago Cardiovascular History: Reports: None Respiratory History: Reports: None Gastrointestinal History: Reports: Cholelithiasis, GERD Genitourinary History: Reports: Renal Calculus 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: , Other (See Below) Other OB/BYN History: hx ascus pap with hpv Musculoskeletal History: Reports: None Neurological History: Reports: None, Head Trauma Psychiatric History: Reports: None Endocrine/Metabolic History: Reports: Diabetes, Gestational Hematologic History: Reports: None, Anemia, Blood Transfusion(s) Other Hematologic History: lost blood with Immunologic History: Reports: None Oncologic (Cancer) History: Reports: None Other Dermatologic History: acne, recurrent cold sores - Infectious Disease History Infectious Disease History: Reports: Chicken Pox - Past Surgical History Head Surgeries/Procedures: Reports: None GI Surgical History: Reports: Cholecystectomy Female Surgical History: Reports: Lithotripsy/ESWL Social & Family History - Family History Cardiac: Reports: Afib, CAD, Heart Failure, High Cholesterol, Hypertension, [place] Respiratory: Reports: Asthma GI: Reports: Cholelithiasis Neurological: Reports: Cerebral Aneurysms, CVA Endocrine/Metabolic: Reports: Diabetes, type II Oncologic: Reports: Breast - Tobacco Use Smoking Status *Q: Never Smoker Second Hand Smoke Exposure: No - Caffeine Use Caffeine Use: Reports: Coffee - Alcohol Use Days Per Week of Alcohol Use: 0 - Recreational Drug Use Recreational Drug Use: No - Living Situation & Occupation Living situation: Reports: , with Family Occupation: Employed ED ROS GENERAL - Review of Systems Review Of Systems: ROS reveals no pertinent complaints other than HPI. ED EXAM, GENERAL - Physical Exam Exam: See Below Exam Limited By: No Limitations General Appearance: Alert, WD/WN, Mild Distress Eye Exam: Bilateral Eye: EOMI, Normal Inspection, PERRL Ears: Normal External Exam, Normal Canal, Hearing Grossly Normal, Normal TMs Nose: Normal Inspection, Normal Mucosa, No Blood Throat/Mouth: Normal Inspection, Normal Lips, Normal Teeth, Normal Gums, Normal Oropharynx, Normal Voice, No Airway Compromise Head: Sinus Tenderness Neck: Normal Inspection, Supple, Non-Tender, Full Range of Motion Respiratory/Chest: No Respiratory Distress, Lungs Clear, Normal Breath Sounds, No Accessory Muscle Use, Chest Non-Tender Cardiovascular: Normal Peripheral Pulses, Regular Rate, Rhythm, No Edema, No Gallop, No JVD, No Murmur, No Rub GI/Abdominal: Normal Bowel Sounds, Soft, Non-Tender, No Organomegaly, No Distention, No Abnormal Bruit, No Mass (Female) Exam: Deferred Rectal (Female) Exam: Deferred Back Exam: Normal Inspection, Full Range of Motion, NT Extremities: Normal Inspection, Normal Range of Motion, Non-Tender, Normal Capillary Refill, No Pedal Edema Neurological: Alert, Oriented, CN II-XII Intact, Normal Cognition, Normal Gait, Normal Reflexes, No Motor/Sensory Deficits Psychiatric: Normal Affect, Normal Mood Skin Exam: Warm, Dry, Intact, Normal Color, No Rash Lymphatic: No Adenopathy Course - Vital Signs Last Recorded V/S: Last Vital Signs Temp 36.6 C 01/03/18 12:20 Pulse 85 01/03/18 12:20 Resp 16 01/03/18 12:20 BP 128/95 H 01/03/18 12:20 Pulse Ox 100 01/03/18 12:20 Orthostatic Blood Pressure [ 147/95 Standing] Orthostatic Blood Pressure [ 122/79 Sitting] Orthostatic Blood Pressure [ 131/79 Supine] - Orders/Labs/Meds Orders: Active Orders 24 hr Category Date Time Status EKG Documentation Completion [RC] URGENT Care 01/03/18 13:03 Ordered DRUG SCREEN URINE BIORAD [URCHEM] Stat Lab 01/03/18 12:43 Ordered HCG QUALITATIVE,URINE [URCHEM] Stat Lab 01/03/18 12:43 Ordered Labs: Laboratory Tests 01/03/18 01/03/18 01/03/18 Range/Units 12:43 12:43 13:12 WBC 7.8 (5.0-10.0) 10^3/uL RBC 4.48 (4.2-5.4) 10^6/uL Hgb 14.0 D (12.0-16.0) g/dL Hct 40.7 (37.0-47.0) % MCV 90.8 D (80-100) fL MCH 31.3 (27.0-34.0) pg MCHC 34.4 (33.0-35.0) g/dL Plt Count 324 D (150-450) 10^3/uL Neut % (Auto) 63.1 (42.2-75.2) % Lymph % (Auto) 22.1 (20.5-50.1) % Camas % (Auto) 10.8 H (2-8) % Eos % (Auto) 3.6 H (1.0-3.0) % Baso % (Auto) 0.4 (0.0-1.0) % Sodium (135-145) mmol/L Potassium (3.6-5.0) mmol/L Chloride (101-111) mmol/L Carbon Dioxide (21.0-31.0) mmol/L Anion Gap BUN (7-18) mg/dL Creatinine (0.6-1.3) mg/dL Est Cr Clr Drug Dosing mL/min Estimated GFR (MDRD) BUN/Creatinine Ratio Glucose (74-105) mg/dL Calcium (8.4-10.2) mg/dl Total Bilirubin (0.2-1.0) mg/dL AST (10-42) IU/L ALT (10-60) IU/L Alkaline Phosphatase (42-121) IU/L Troponin I (0.00-0.02) ng/ml Total Protein (6.7-8.2) g/dl Albumin (3.2-5.5) g/dl Globulin Albumin/Globulin Ratio Urine HCG, Qual Negative Urine Opiates Screen Negative (NEGATIVE) Ur Oxycodone Screen Negative (NEGATIVE) Urine Methadone Screen Negative (NEGATIVE) Ur Barbiturates Screen Negative (NEGATIVE) U Tricyclic Antidepress Negative (NEGATIVE) Ur Phencyclidine Scrn Negative (NEGATIVE) Ur Amphetamine Screen Negative (NEGATIVE) U Methamphetamines Scrn Negative (NEGATIVE) Urine MDMA Screen Negative (NEGATIVE) U Benzodiazepines Scrn Negative (NEGATIVE) Urine Cocaine Screen Negative (NEGATIVE) U Marijuana (THC) Screen Negative (NEGATIVE) 01/03/18 Range/Units 13:12 WBC (5.0-10.0) 10^3/uL RBC (4.2-5.4) 10^6/uL Hgb (12.0-16.0) g/dL Hct (37.0-47.0) % MCV (80-100) fL MCH (27.0-34.0) pg MCHC (33.0-35.0) g/dL Plt Count (150-450) 10^3/uL Neut % (Auto) (42.2-75.2) % Lymph % (Auto) (20.5-50.1) % Cam[place] % (Auto) (2-8) % Eos % (Auto) (1.0-3.0) % Baso % (Auto) (0.0-1.0) % Sodium 138 (135-145) mmol/L Potassium 3.8 (3.6-5.0) mmol/L Chloride 106 (101-111) mmol/L Carbon Dioxide 26.0 (21.0-31.0) mmol/L Anion Gap 9.8 BUN 13 (7-18) mg/dL Creatinine 0.6 (0.6-1.3) mg/dL Est Cr Clr Drug Dosing 123.37 mL/min Estimated GFR (MDRD) > 60 BUN/Creatinine Ratio 21.66 Glucose 64 L (74-105) mg/dL Calcium 9.4 (8.4-10.2) mg/dl Total Bilirubin 0.6 (0.2-1.0) mg/dL AST 22 (10-42) IU/L ALT 14 (10-60) IU/L Alkaline Phosphatase 102 (42-121) IU/L Troponin I < 0.02 (0.00-0.02) ng/ml Total Protein 7.8 (6.7-8.2) g/dl Albumin 4.2 (3.2-5.5) g/dl Globulin 3.6 Albumin/Globulin Ratio 1.17 Urine HCG, Qual Urine Opiates Screen (NEGATIVE) Ur Oxycodone Screen (NEGATIVE) Urine Methadone Screen (NEGATIVE) Ur Barbiturates Screen (NEGATIVE) U Tricyclic Antidepress (NEGATIVE) Ur Phencyclidine Scrn (NEGATIVE) Ur Amphetamine Screen (NEGATIVE) U Methamphetamines Scrn (NEGATIVE) Urine MDMA Screen (NEGATIVE) U Benzodiazepines Scrn (NEGATIVE) Urine Cocaine Screen (NEGATIVE) U Marijuana (THC) Screen (NEGATIVE) Departure - Departure Time of Disposition: 13:56 Disposition: Home, Self-Care 01 Condition: Fair Clinical Impression: Anxiety - Discharge Information Instructions: Generalized Anxiety Disorder, Adult Referrals: Deya Peoples MD [Primary Care Provider] - Forms: ED Department Discharge Care Plan Goals: The patient was advised of the examination, lab, and EKG results during the visit. The patient was encouraged to continue to monitor her symptoms. If the patient has any additional symptoms or concerns, the patient should either visit her primary care facility or return to the emergency department. - My Orders Last 24 Hours: My Active Orders 01/03/18 12:43 DRUG SCREEN URINE BIORAD [URCHEM] Stat HCG QUALITATIVE,URINE [URCHEM] Stat 01/03/18 13:03 EKG Documentation Completion [RC] URGENT - Assessment/Plan Last 24 Hours: My Active Orders 01/03/18 12:43 DRUG SCREEN URINE BIORAD [URCHEM] Stat HCG QUALITATIVE,URINE [URCHEM] Stat 01/03/18 13:03 EKG Documentation Completion [RC] URGENT
--- NOTE | 2018-01-06 10:11 | EKG ---
01/03/2018- TASIA GENAO - EKG, per my reading, shows sinus rhythm at the rate of 70s. [facility] /[id number]
== END 2018-01-03 14:06 | disposition home or self-care (01) ==
LOC: DL.ED 12:14
DX: F41.9 Anxiety disorder, unspecified (principal); Z88.5 Allergy status to narcotic agent; Z91.011 Allergy to milk products
CPT/HCPCS: 36415; 80053; 80305; 81025; 84484; 85025; 93005; 99285

== ENCOUNTER 2018-02-06 17:51 | Emergency (ER) | payer OTHER ==
[2018-02-06 18:06] VITALS: BP 129/79
[2018-02-06] MEDS ORDERED: Ketorolac 30 MG/ML SDV IM ONE (18:21)
[2018-02-06] MEDS ORDERED: cefTRIAXone 1 GM, Lidocaine 1% 2.1 ML IM ONE ×2 (18:21)
[2018-02-06] MEDS ORDERED: Ondansetron 4 MG Tab.DIS PO ONE (18:21)
--- NOTE | 2018-02-06 18:31 | EDM.PDOC ---
ED HPI GENERAL MEDICAL PROBLEM - General Chief Complaint: Headache Stated Complaint: [id number] MIGRAINE Time Seen by Provider: 02/06/18 18:05 Source of Information: Reports: Patient History Limitations: Reports: No Limitations - History of Present Illness INITIAL COMMENTS - FREE TEXT/NARRATIVE: This 32 yo female patient reports to the ED with a headache and head congestion. The patient reports she has had increased symptoms throughout the day. The patient reports she has been taking over the counter medications, but has not had any symptom relief from the over the counter medications. Onset: Gradual Duration: Day(s):, Constant, Getting Worse Location: Reports: Head, Face (right side) Quality: Reports: Ache, Pressure Severity: Moderate Improves with: Reports: None Worsens with: Reports: None Associated Symptoms: Reports: No Other Symptoms Right Head Pain Score (Numeric/FACES): 7 - Related Data Allergies Allergy/AdvReac Type Severity Reaction Status Date / Time morphine Allergy Difficulty Verified 01/03/18 12:26 Breathing dairy Allergy Diarrhea Uncoded 01/03/18 12:26 Home Meds: Home Meds Ibuprofen [IJD: Ibuprofen] 600 mg PO Q8H PRN #30 tablet 02/09/17 [Rx] Acetaminophen [Tylenol Extra Strength] 500 mg PO ASDIRECTED PRN 01/03/18 [ History] Past Medical History HEENT History: Reports: Impaired Vision Other HEENT History: wears glasses, just got them a week ago Cardiovascular History: Reports: None Respiratory History: Reports: None Gastrointestinal History: Reports: Cholelithiasis, GERD Genitourinary History: Reports: Renal Calculus 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: , Other (See Below) Other OB/BYN History: hx ascus pap with hpv Musculoskeletal History: Reports: None Neurological History: Reports: None, Head Trauma Psychiatric History: Reports: None Endocrine/Metabolic History: Reports: Diabetes, Gestational Hematologic History: Reports: None, Anemia, Blood Transfusion(s) Other Hematologic History: lost blood with Immunologic History: Reports: None Oncologic (Cancer) History: Reports: None Other Dermatologic History: acne, recurrent cold sores - Infectious Disease History Infectious Disease History: Reports: Chicken Pox - Past Surgical History Head Surgeries/Procedures: Reports: None GI Surgical History: Reports: Cholecystectomy Female Surgical History: Reports: Section, Lithotripsy/ESWL Social & Family History - Family History Cardiac: Reports: Afib, CAD, Heart Failure, High Cholesterol, Hypertension, [place] Respiratory: Reports: Asthma GI: Reports: Cholelithiasis Neurological: Reports: Cerebral Aneurysms, CVA Endocrine/Metabolic: Reports: Diabetes, type II Oncologic: Reports: Breast - Tobacco Use Smoking Status *Q: Never Smoker - Caffeine Use Caffeine Use: Reports: Coffee - Recreational Drug Use Recreational Drug Use: No - Living Situation & Occupation Living situation: Reports: , with Family Occupation: Employed ED ROS GENERAL - Review of Systems Review Of Systems: ROS reveals no pertinent complaints other than HPI. ED EXAM, GENERAL - Physical Exam Exam: See Below Exam Limited By: No Limitations General Appearance: Alert, WD/WN, Moderate Distress Eye Exam: Bilateral Eye: EOMI, Normal Inspection, PERRL Ears: Normal External Exam, Normal Canal, Hearing Grossly Normal, Normal TMs Nose: Normal Inspection, Normal Mucosa, No Blood Throat/Mouth: Normal Inspection, Normal Lips, Normal Teeth, Normal Gums, Normal Oropharynx, Normal Voice, No Airway Compromise Head: Atraumatic, Normocephalic Neck: Normal Inspection, Supple, Non-Tender, Full Range of Motion Respiratory/Chest: No Respiratory Distress, Lungs Clear, Normal Breath Sounds, No Accessory Muscle Use, Chest Non-Tender Cardiovascular: Normal Peripheral Pulses, Regular Rate, Rhythm, No Edema, No Gallop, No JVD, No Murmur, No Rub GI/Abdominal: Normal Bowel Sounds, Soft, Non-Tender, No Organomegaly, No Distention, No Abnormal Bruit, No Mass (Female) Exam: Deferred Rectal (Female) Exam: Deferred Back Exam: Normal Inspection, Full Range of Motion, NT Extremities: Normal Inspection, Normal Range of Motion, Non-Tender, Normal Capillary Refill, No Pedal Edema Neurological: Alert, Oriented, CN II-XII Intact, Normal Cognition, Normal Gait, Normal Reflexes, No Motor/Sensory Deficits Psychiatric: Normal Affect, Normal Mood Skin Exam: Warm, Dry, Intact, Normal Color, No Rash Lymphatic: No Adenopathy Course - Vital Signs Last Recorded V/S: Last Vital Signs Temp 37.4 C 02/06/18 18:04 Pulse 85 02/06/18 18:04 Resp 16 02/06/18 18:04 BP 129/79 02/06/18 18:04 Pulse Ox 98 02/06/18 18:04 - Orders/Labs/Meds Meds: Medications Discontinued Medications Generic Name Dose Route Start Last Admin Trade Name Gonzalez PRN Reason Stop Dose Admin Ceftriaxone Sodium 1 gm/ 0 gm 02/06/18 18:21 Lidocaine HCl 2.1 ml IM 02/06/18 18:22 ONETIME ONE Ketorolac Tromethamine 30 mg 02/06/18 18:21 Toradol IM 02/06/18 18:22 ONETIME ONE Ondansetron HCl 4 mg 02/06/18 18:21 Zofran Odt PO 02/06/18 18:22 ONETIME ONE Departure - Departure Time of Disposition: 18:27 Disposition: Home, Self-Care 01 Condition: Fair Clinical Impression: Sinus headache Sinusitis Qualifiers: Sinusitis location: frontal Chronicity: acute Recurrence: non-recurrent Qualified Code(s): J01.10 - Acute frontal sinusitis, unspecified - Discharge Information Instructions: Sinusitis, Adult, [id number], Sinus Headache, [id number] Referrals: Deya Peoples MD [Primary Care Provider] - Forms: ED Department Discharge Care Plan Goals: The patient was advised of the examination results during the visit. The patient was given an oral dose of Zofran for nausea, an injection of Toradol for her headache and an injection of Rocephin for her sinus infection. The patient was discharged with a script for Keflex (500 mg) #30 to take 1 by mouth 3 times per day for 10 days and Diflucan (150 mg) #2 to take 1 by mouth at symptom onset and 1 by mouth 3 days later. If the patient has any additional symptoms or concerns, the patient should follow-up with her primary care facility or return to the emergency department.
== END 2018-02-06 18:51 | disposition home or self-care (01) ==
LOC: DL.ED 17:51
DX: J01.10 Acute frontal sinusitis, unspecified (principal); R51 Headache; Z88.5 Allergy status to narcotic agent; Z91.011 Allergy to milk products
CPT/HCPCS: 96372; 99283; A9270; J1885

== ENCOUNTER 2018-06-09 15:06 | Emergency (ER) | payer OTHER ==
[2018-06-09 15:19] VITALS: BP 112/84
[2018-06-09] MEDS ORDERED: Sodium Chloride 0.9% 1,000 ML IV ONE (15:28)
[2018-06-09] MEDS ORDERED: Ondansetron 4 MG/2 ML SDV IV ONE (15:28)
[2018-06-09] MEDS ORDERED: Ketorolac 30 MG/ML SDV IVPUSH ONE (15:35)
--- NOTE | 2018-06-09 15:38 | EDM.PDOC ---
ED HPI GENERAL MEDICAL PROBLEM - General Chief Complaint: Back Pain or Injury Stated Complaint: strep throat [id number] Time Seen by Provider: 06/09/18 15:20 Source of Information: Reports: Patient History Limitations: Reports: No Limitations - History of Present Illness INITIAL COMMENTS - FREE TEXT/NARRATIVE: This 32 yo female patient reports to the ED with nausea/vomiting, a headache and back pain. The patient reports that she was seen in the [facility] earlier today and was diagnosed with strep throat, but before the patient could start the prescribed Augmentin, the patient started to become nauseated and started vomiting. The patient reports she has been able to keep down Tylenol, but nothing else. The patient reports that her daughter was also diagnosed with strep throat. 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 Lower Back Pain Score (Numeric/FACES): 9 - Related Data Allergies Allergy/AdvReac Type Severity Reaction Status Date / Time morphine Allergy Difficulty Verified 06/09/18 15:19 Breathing dairy Allergy Diarrhea Uncoded 06/09/18 15:19 Home Meds: Home Meds Ibuprofen [IJD: Ibuprofen] 600 mg PO Q8H PRN #30 tablet 02/09/17 [Rx] Acetaminophen [Tylenol Extra Strength] 500 mg PO ASDIRECTED PRN 01/03/18 [ History] Past Medical History HEENT History: Reports: Impaired Vision Other HEENT History: wears glasses, just got them a week ago Cardiovascular History: Reports: None Respiratory History: Reports: None Gastrointestinal History: Reports: Cholelithiasis, GERD Genitourinary History: Reports: Renal Calculus NEEDLEWORKER History: Reports: , Other (See Below) Other NEEDLEWORKER History: hx ascus pap with hpv Musculoskeletal History: Reports: None Neurological History: Reports: None, Head Trauma Psychiatric History: Reports: None Endocrine/Metabolic History: Reports: Diabetes, Gestational Hematologic History: Reports: None, Anemia, Blood Transfusion(s) Other Hematologic History: lost blood with Immunologic History: Reports: None Oncologic (Cancer) History: Reports: None Other Dermatologic History: acne, recurrent cold sores - Infectious Disease History Infectious Disease History: Reports: Chicken Pox - Past Surgical History Head Surgeries/Procedures: Reports: None GI Surgical History: Reports: Cholecystectomy Female Surgical History: Reports: Section, Lithotripsy/ESWL Social & Family History - Family History Cardiac: Reports: Afib, CAD, Heart Failure, High Cholesterol, Hypertension, [place] Respiratory: Reports: Asthma GI: Reports: Cholelithiasis Neurological: Reports: Cerebral Aneurysms, CVA Endocrine/Metabolic: Reports: Diabetes, type II Oncologic: Reports: Breast - Tobacco Use Smoking Status *Q: Never Smoker Second Hand Smoke Exposure: No - Caffeine Use Caffeine Use: Reports: Coffee - Recreational Drug Use Recreational Drug Use: No - Living Situation & Occupation Living situation: Reports: , with Family Occupation: Employed ED ROS GENERAL - Review of Systems Review Of Systems: ROS reveals no pertinent complaints other than HPI. ED EXAM, GENERAL - Physical Exam Exam: See Below Exam Limited By: No Limitations General Appearance: Alert, WD/WN, Moderate Distress Eye Exam: Bilateral Eye: EOMI, Normal Inspection, PERRL Ears: Normal External Exam, Normal Canal, Hearing Grossly Normal, Normal TMs Nose: Normal Inspection, Normal Mucosa, No Blood Throat/Mouth: Normal Inspection, Normal Lips, Normal Teeth, Normal Gums, Normal Oropharynx, Normal Voice, No Airway Compromise Head: Atraumatic, Normocephalic Neck: Normal Inspection, Supple, Non-Tender, Full Range of Motion Respiratory/Chest: No Respiratory Distress, Lungs Clear, Normal Breath Sounds, No Accessory Muscle Use, Chest Non-Tender Cardiovascular: Normal Peripheral Pulses, Regular Rate, Rhythm, No Edema, No Gallop, No JVD, No Murmur, No Rub GI/Abdominal: Normal Bowel Sounds, Soft, Non-Tender, No Organomegaly, No Distention, No Abnormal Bruit, No Mass, Pelvis Stable (Female) Exam: Deferred Rectal (Female) Exam: Deferred Back Exam: Other (generalized back pain) Extremities: Normal Inspection, Normal Range of Motion, Non-Tender, Normal Capillary Refill, No Pedal Edema Neurological: Alert, Oriented, CN II-XII Intact, Normal Cognition, Normal Gait, Normal Reflexes, No Motor/Sensory Deficits Psychiatric: Normal Affect, Normal Mood Skin Exam: Warm, Dry, Intact, Normal Color, No Rash Lymphatic: No Adenopathy Course - Vital Signs Last Recorded V/S: Last Vital Signs Temp 37.3 C 06/09/18 15:12 Pulse 113 H 06/09/18 15:12 Resp 18 06/09/18 15:12 BP 112/84 06/09/18 15:12 Pulse Ox 99 06/09/18 15:12 - Orders/Labs/Meds Orders: Active Orders 24 hr Category Date Time Status CULTURE BLOOD [BC] Stat Lab 06/09/18 15:56 Ordered CULTURE BLOOD [BC] Stat Lab 06/09/18 15:56 Ordered Blood Culture x2 Reflex Set [OM.PC] Stat Oth 06/09/18 15:56 Ordered Labs: Laboratory Tests 06/09/18 06/09/18 06/09/18 Range/Units 15:38 15:38 15:40 WBC 29.4 H* (5.0-10.0) 10^3/uL RBC 4.45 (4.2-5.4) 10^6/uL Hgb 13.4 (12.0-16.0) g/dL Hct 40.2 (37.0-47.0) % MCV 90.3 (80-100) fL MCH 30.1 (27.0-34.0) pg MCHC 33.3 (33.0-35.0) g/dL Plt Count 355 (150-450) 10^3/uL Neut % (Auto) 94.6 H (42.2-75.2) % Lymph % (Auto) 1.4 L (20.5-50.1) % Leon % (Auto) 3.9 (2-8) % Eos % (Auto) 0.0 L (1.0-3.0) % Baso % (Auto) 0.1 (0.0-1.0) % Add Manual Diff Yes Neutrophils % (Manual) 97 H (42-75) % Lymphocytes % (Manual) 2 L (20-50) % Monocytes % (Manual) 1 L (2-8) % Sodium 132 L (135-145) mmol/L Potassium 3.4 L (3.6-5.0) mmol/L Chloride 97 L (101-111) mmol/L Carbon Dioxide 26.0 (21.0-31.0) mmol/L Anion Gap 12.4 BUN 9 (7-18) mg/dL Creatinine 0.5 L (0.6-1.3) mg/dL Est Cr Clr Drug Dosing 148.04 mL/min Estimated GFR (MDRD) > 60 BUN/Creatinine Ratio 18.00 Glucose 128 H (74-105) mg/dL Lactic Acid (0.5-2.2) mmol/L Calcium 8.9 (8.4-10.2) mg/dl Total Bilirubin 0.8 (0.2-1.0) mg/dL AST 19 (10-42) IU/L ALT 15 (10-60) IU/L Alkaline Phosphatase 95 (42-121) IU/L Total Protein 8.3 H (6.7-8.2) g/dl Albumin 4.3 (3.2-5.5) g/dl Globulin 4.0 Albumin/Globulin Ratio 1.08 Urine Color Yellow (YELLOW) Urine Appearance Cloudy (CLEAR) Urine pH 7.0 (5.0-9.0) Ur Specific [place] 1.020 (1.005-1.030) Urine Protein Trace H (NEGATIVE) Urine Glucose (UA) Negative (NEGATIVE) Urine Ketones >=160 H (NEGATIVE) Urine Occult Blood Trace-intact H (NEGATIVE) Urine Nitrite Negative (NEGATIVE) Urine Bilirubin Small H (NEGATIVE) Urine Urobilinogen 0.2 (0.2-1.0) mg/dL Ur Leukocyte Esterase Negative (NEGATIVE) Urine RBC 0-5 /HPF Urine WBC 0-5 (0-5/HPF) /HPF Ur Epithelial Cells Many H /HPF Urine Bacteria Few (0-FEW/HPF) /HPF Urine Mucus Many H /LPF Urine HCG, Qual Urine Opiates Screen (NEGATIVE) Ur Oxycodone Screen (NEGATIVE) Urine Methadone Screen (NEGATIVE) Ur Barbiturates Screen (NEGATIVE) U Tricyclic Antidepress (NEGATIVE) Ur Phencyclidine Scrn (NEGATIVE) Ur Amphetamine Screen (NEGATIVE) U Methamphetamines Scrn (NEGATIVE) Urine MDMA Screen (NEGATIVE) U Benzodiazepines Scrn (NEGATIVE) Urine Cocaine Screen (NEGATIVE) U Marijuana (THC) Screen (NEGATIVE) 06/09/18 06/09/18 06/09/18 Range/Units 15:40 15:40 16:23 WBC (5.0-10.0) 10^3/uL RBC (4.2-5.4) 10^6/uL Hgb (12.0-16.0) g/dL Hct (37.0-47.0) % MCV (80-100) fL MCH (27.0-34.0) pg MCHC (33.0-35.0) g/dL Plt Count (150-450) 10^3/uL Neut % (Auto) (42.2-75.2) % Lymph % (Auto) (20.5-50.1) % Leon % (Auto) (2-8) % Eos % (Auto) (1.0-3.0) % Baso % (Auto) (0.0-1.0) % Add Manual Diff Neutrophils % (Manual) (42-75) % Lymphocytes % (Manual) (20-50) % Monocytes % (Manual) (2-8) % Sodium (135-145) mmol/L Potassium (3.6-5.0) mmol/L Chloride (101-111) mmol/L Carbon Dioxide (21.0-31.0) mmol/L Anion Gap BUN (7-18) mg/dL Creatinine (0.6-1.3) mg/dL Est Cr Clr Drug Dosing mL/min Estimated GFR (MDRD) BUN/Creatinine Ratio Glucose (74-105) mg/dL Lactic Acid 1.1 (0.5-2.2) mmol/L Calcium (8.4-10.2) mg/dl Total Bilirubin (0.2-1.0) mg/dL AST (10-42) IU/L ALT (10-60) IU/L Alkaline Phosphatase (42-121) IU/L Total Protein (6.7-8.2) g/dl Albumin (3.2-5.5) g/dl Globulin Albumin/Globulin Ratio Urine Color (YELLOW) Urine Appearance (CLEAR) Urine pH (5.0-9.0) Ur Specific [place] (1.005-1.030) Urine Protein (NEGATIVE) Urine Glucose (UA) (NEGATIVE) Urine Ketones (NEGATIVE) Urine Occult Blood (NEGATIVE) Urine Nitrite (NEGATIVE) Urine Bilirubin (NEGATIVE) Urine Urobilinogen (0.2-1.0) mg/dL Ur Leukocyte Esterase (NEGATIVE) Urine RBC /HPF Urine WBC (0-5/HPF) /HPF Ur Epithelial Cells /HPF Urine Bacteria (0-FEW/HPF) /HPF Urine Mucus /LPF Urine HCG, Qual Negative Urine Opiates Screen Negative (NEGATIVE) Ur Oxycodone Screen Negative (NEGATIVE) Urine Methadone Screen Negative (NEGATIVE) Ur Barbiturates Screen Negative (NEGATIVE) U Tricyclic Antidepress Negative (NEGATIVE) Ur Phencyclidine Scrn Negative (NEGATIVE) Ur Amphetamine Screen Negative (NEGATIVE) U Methamphetamines Scrn Negative (NEGATIVE) Urine MDMA Screen Negative (NEGATIVE) U Benzodiazepines Scrn Negative (NEGATIVE) Urine Cocaine Screen Negative (NEGATIVE) U Marijuana (THC) Screen Negative (NEGATIVE) Meds: Medications Discontinued Medications Generic Name Dose Route Start Last Admin Trade Name Freq PRN Reason Stop Dose Admin Acetaminophen 650 mg 06/09/18 17:06 Tylenol PO 06/09/18 17:07 NOW ONE Sodium Chloride 1,000 mls @ 999 mls/hr 06/09/18 15:28 06/09/18 15:47 Normal Saline IV 06/09/18 16:28 999 mls/hr .BOLUS ONE Administration Ketorolac Tromethamine 30 mg 06/09/18 15:35 06/09/18 15:50 Toradol IVPUSH 06/09/18 15:36 30 mg ONETIME ONE Administration Ondansetron HCl 4 mg 06/09/18 15:28 06/09/18 15:47 Zofran IV 06/09/18 15:29 4 mg ONETIME ONE Administration Penicillin G Procaine/Benzathine 1.2 millunits 06/09/18 17:06 Bicillin C-R 600/600 IM 06/09/18 17:07 ONETIME ONE - Radiology Interpretation Free Text/Narrative:: Dr. Willis reports that the CT demonstrated kidney stones in the kidneys, but no evidence of obstruction. There was no evidence of an appendicitis at this time. Departure - Departure Time of Disposition: 17:19 Disposition: Home, Self-Care 01 Condition: Fair Clinical Impression: Strep pharyngitis Leukocytosis Qualifiers: Leukocytosis type: bandemia Qualified Code(s): D72.825 - Bandemia - Discharge Information *PRESCRIPTION DRUG MONITORING PROGRAM REVIEWED*: Not Applicable *COPY OF PRESCRIPTION DRUG MONITORING REPORT IN PATIENT KRISHNA: Not Applicable Instructions: Strep Throat, [id number] Forms: ED Department Discharge Care Plan Goals: The patient was advised of the examination, lab and CT results during the visit. The patient was given a liter of IV fluids, IV Zofran, IV Toradol, an oral dose of Tylenol and an injection of Bicillin while in the ED. The patient was discharged with a script for Azithromycin (250 mg) to take 2 by mouth on day 1 and 1 by mouth on days 2-5 and Diflucan (150 mg) to take 1 at symptom onset (for yeast infection associated with oral antibiotics). If the patient has any additional symptoms or concerns, the patient should follow-up with her primary care facility or return to the emergency department. - My Orders Last 24 Hours: My Active Orders 06/09/18 15:56 CULTURE BLOOD [BC] Stat CULTURE BLOOD [BC] Stat Blood Culture x2 Reflex Set [OM.PC] Stat - Assessment/Plan Last 24 Hours: My Active Orders 06/09/18 15:56 CULTURE BLOOD [BC] Stat CULTURE BLOOD [BC] Stat Blood Culture x2 Reflex Set [OM.PC] Stat
[2018-06-09 16:04] LABS: ANION GAP 12.4; CHLORIDE,CL 97 mmol/L (101-111); SODIUM,NA 132 mmol/L (135-145)
--- NOTE | 2018-06-09 17:05 | CT ---
Clinical history: 32-year-old obese female with generalized abdominal pain and abnormally elevated ite blood cell count (29,000) who has a history of kidney stones ("distal right ureteral calculus" 20 11). Gallbladder surgically absent. Strept. Positive. Scan technique: Volume acquisition of data from the abdomen and pelvis obtained without oral or IV co ntrast while patient was lying supine on the Siemens multi slice scanner [place], [place]. All data archived in the PACS system for storage, reformatting axial/sagittal/co denisse planes and study. Interpretation: Abnormal. 1. Several tiny punctate calyceal calcifications mid and lower pole right kidney. Solitary large 7 mm mid pole calcification left kidney. 2. No current signs of pyelocaliectasis or ureterectasis i.e. no current indication of obstructive ur opathy. Normal urinary bladder. 3. Cysts right ovary and isolated phlebolith mid pelvis on the right. Appendix not identified but no inflammation RLQ. Cholecystectomy. Unenhanced liver, stomach, spleen, pancreas and adrenal glands unr emarkable. 5. Normal caliber aortoiliac vessels. No aneurysm or dissection. Signs of disc disease thoracolumbar juncture/lower lumbar spine. 6. No pelvic or abdominal mass lesion, mesenteric/retroperitoneal lymphadenopathy, inflammatory "dirt y" peritoneal fat, abscess, signs of mechanical bowel obstruction, ascites or free intraperitoneal ai r. 7. Lung bases clear. CONCLUSION: Bilateral nephrolithiasis. No sign of obstructive uropathy, abscess or acute peritonitis.
[2018-06-09] MEDS ORDERED: Acetaminophen 325 MG Tab PO ONE (17:06)
[2018-06-09] MEDS ORDERED: Penicillin G Benzathine/Procaine 600-600 1.2 Millunits/2 ML Syringe IM ONE (17:06)
== END 2018-06-09 17:44 | disposition home or self-care (01) ==
LOC: DL.ED 15:06
DX: J02.0 Streptococcal pharyngitis (principal); D72.825 Bandemia; N20.0 Calculus of kidney; Z88.5 Allergy status to narcotic agent; Z91.011 Allergy to milk products
CPT/HCPCS: 36415; 74176; 80053; 80305; 81001; 81025; 83605; 85025; 87040; 96361; 96372; 96374; 96375; 99284; A9270; J0558; J1885; J2405; J7030

== ENCOUNTER 2018-06-10 09:41 | Emergency (ER) | payer OTHER ==
[2018-06-10 10:26] VITALS: BP 126/70
[2018-06-10] MEDS ORDERED: Ondansetron 4 MG/2 ML SDV IV ONE (10:32)
[2018-06-10] MEDS ORDERED: Sodium Chloride 0.9% 1,000 ML IV ONE (10:32)
[2018-06-10] MEDS ORDERED: Ketorolac 30 MG/ML SDV IVPUSH ONE (10:39)
--- NOTE | 2018-06-10 10:44 | EDM.PDOC ---
ED HPI GENERAL MEDICAL PROBLEM - General Chief Complaint: Gastrointestinal Problem Stated Complaint: [id number] VOMITING SENT FROM CLINIC Time Seen by Provider: 06/10/18 10:35 Source of Information: Reports: Patient History Limitations: Reports: No Limitations - History of Present Illness INITIAL COMMENTS - FREE TEXT/NARRATIVE: This 32 yo female patient reports to the ED from the [facility] due to nausea/ vomiting. The patient was seen by Dr. Garcia in the [facility] and was told to come to the ED due to "limited resources." The patient reports she attempted to get through her symptoms at home, but continued to have nausea and vomiting. The patient was seen in the [facility] yesterday. After the patient's nausea and vomiting started, the patient came to the ED. The patient was given a liter of IV fluids in the ED, IV Zofran, an injection of Bicillin and discharged with scripts for Azithromycin and Diflucan. The patient reports that she has not been able to keep anything down other than 1000 mg of Tylenol this morning. The patient reports she has continued to have a headache. 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 - Related Data Allergies Allergy/AdvReac Type Severity Reaction Status Date / Time morphine Allergy Difficulty Verified 06/10/18 10:13 Breathing dairy Allergy Diarrhea Uncoded 06/09/18 15:19 Home Meds: Home Meds Ibuprofen [IJD: Ibuprofen] 600 mg PO Q8H PRN #30 tablet 02/09/17 [Rx] Acetaminophen [Tylenol Extra Strength] 500 mg PO ASDIRECTED PRN 01/03/18 [ History] Past Medical History HEENT History: Reports: Impaired Vision Other HEENT History: wears glasses, just got them a week ago Cardiovascular History: Reports: None Respiratory History: Reports: None Gastrointestinal History: Reports: Cholelithiasis, GERD Genitourinary History: Reports: Renal Calculus 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: , Other (See Below) Other DIE HARDENER History: hx ascus pap with hpv Musculoskeletal History: Reports: None Neurological History: Reports: Head Trauma Psychiatric History: Reports: None Endocrine/Metabolic History: Reports: Diabetes, Gestational Hematologic History: Reports: None, Anemia, Blood Transfusion(s) Other Hematologic History: lost blood with Immunologic History: Reports: None Oncologic (Cancer) History: Reports: None Dermatologic History: Reports: Other (See Below) Other Dermatologic History: acne, recurrent cold sores - Infectious Disease History Infectious Disease History: Reports: Chicken Pox - Past Surgical History Head Surgeries/Procedures: Reports: None GI Surgical History: Reports: Cholecystectomy Female Surgical History: Reports: Section, Lithotripsy/ESWL Social & Family History - Family History Cardiac: Reports: Afib, CAD, Heart Failure, High Cholesterol, Hypertension, [place] Respiratory: Reports: Asthma GI: Reports: Cholelithiasis Neurological: Reports: Cerebral Aneurysms, CVA Endocrine/Metabolic: Reports: Diabetes, type II Oncologic: Reports: Breast - Tobacco Use Smoking Status *Q: Never Smoker Second Hand Smoke Exposure: No - Caffeine Use Caffeine Use: Reports: Coffee - Recreational Drug Use Recreational Drug Use: No - Living Situation & Occupation Living situation: Reports: , with Family Occupation: Employed ED ROS GENERAL - Review of Systems Review Of Systems: ROS reveals no pertinent complaints other than HPI. ED EXAM, GI/ABD - Physical Exam Exam: See Below Exam Limited By: No Limitations General Appearance: Alert, WD/WN, Moderate Distress Eyes: Bilateral: Normal Appearance, EOMI Ears: Normal External Exam, Normal Canal, Hearing Grossly Normal, Normal TMs Nose: Normal Inspection, Normal Mucosa, No Blood Throat/Mouth: Inflammation (tonsils and posterior pharynx) Head: Atraumatic, Normocephalic Neck: Lymphadenopathy (L), Lymphadenopathy (R) Respiratory/Chest: No Respiratory Distress, Lungs Clear, Normal Breath Sounds, No Accessory Muscle Use, Chest Non-Tender Cardiovascular: Normal Peripheral Pulses, Regular Rate, Rhythm, No Edema, No Gallop, No JVD, No Murmur, No Rub GI/Abdominal Exam: Normal Bowel Sounds, Soft, Non-Tender, No Organomegaly, No Distention, No Abnormal Bruit, No Mass, Pelvis Stable (Female) Exam: Deferred Rectal (Female) Exam: Deferred Back Exam: Normal Inspection, Full Range of Motion, NT Extremities: Normal Inspection, Normal Range of Motion, Non-Tender, Normal Capillary Refill, No Pedal Edema Neurological: Alert, Oriented, CN II-XII Intact, Normal Cognition, Normal Gait, Normal Reflexes, No Motor/Sensory Deficits Psychiatric: Normal Affect, Normal Mood Skin Exam: Warm, Dry, Intact, Normal Color, No Rash Lymphatic: No Adenopathy Course - Vital Signs Last Recorded V/S: Last Vital Signs Temp 37.0 C 06/10/18 10:10 Pulse 88 06/10/18 10:10 Resp 16 06/10/18 10:10 BP 126/70 06/10/18 10:10 Pulse Ox 98 06/10/18 10:10 - Orders/Labs/Meds Labs: Laboratory Tests 06/10/18 06/10/18 Range/Units 10:44 10:44 WBC 21.3 H (5.0-10.0) 10^3/uL RBC 4.34 (4.2-5.4) 10^6/uL Hgb 13.1 (12.0-16.0) g/dL Hct 39.5 (37.0-47.0) % MCV 91.0 (80-100) fL MCH 30.2 (27.0-34.0) pg MCHC 33.2 (33.0-35.0) g/dL Plt Count 308 (150-450) 10^3/uL Neut % (Auto) 87.9 H (42.2-75.2) % Lymph % (Auto) 4.5 L (20.5-50.1) % Chambers % (Auto) 7.3 (2-8) % Eos % (Auto) 0.2 L (1.0-3.0) % Baso % (Auto) 0.1 (0.0-1.0) % Sodium 135 (135-145) mmol/L Potassium 3.3 L (3.6-5.0) mmol/L Chloride 101 (101-111) mmol/L Carbon Dioxide 26.0 (21.0-31.0) mmol/L Anion Gap 11.3 BUN 7 (7-18) mg/dL Creatinine 0.5 L (0.6-1.3) mg/dL Est Cr Clr Drug Dosing 148.04 mL/min Estimated GFR (MDRD) > 60 BUN/Creatinine Ratio 14.00 Glucose 100 (74-105) mg/dL Calcium 8.4 (8.4-10.2) mg/dl Total Bilirubin 0.9 (0.2-1.0) mg/dL AST 21 (10-42) IU/L ALT 16 (10-60) IU/L Alkaline Phosphatase 86 (42-121) IU/L Total Protein 7.7 (6.7-8.2) g/dl Albumin 3.9 (3.2-5.5) g/dl Globulin 3.8 Albumin/Globulin Ratio 1.03 Meds: Medications Discontinued Medications Generic Name Dose Route Start Last Admin Trade Name Lambertq PRN Reason Stop Dose Admin Diphenhydramine HCl 25 mg 06/10/18 11:29 06/10/18 11:37 Benadryl IVPUSH 06/10/18 11:30 25 mg ONETIME ONE Administration Sodium Chloride 1,000 mls @ 999 mls/hr 06/10/18 10:32 06/10/18 10:55 Normal Saline IV 06/10/18 11:32 999 mls/hr .BOLUS ONE Administration Ketorolac Tromethamine 30 mg 06/10/18 10:39 06/10/18 10:56 Toradol IVPUSH 06/10/18 10:40 30 mg ONETIME ONE Administration Ondansetron HCl 4 mg 06/10/18 10:32 06/10/18 10:56 Zofran IV 06/10/18 10:33 4 mg ONETIME ONE Administration Departure - Departure Time of Disposition: 12:03 Disposition: Home, Self-Care 01 Condition: Fair Clinical Impression: Nausea & vomiting Qualifiers: Vomiting type: unspecified Vomiting Intractability: intractable Qualified Code( s): R11.2 - Nausea with vomiting, unspecified Headache Qualifiers: Headache type: unspecified Headache chronicity pattern: acute headache Intractability: intractable Qualified Code(s): R51 - Headache - Discharge Information *PRESCRIPTION DRUG MONITORING PROGRAM REVIEWED*: Not Applicable *COPY OF PRESCRIPTION DRUG MONITORING REPORT IN PATIENT KRISHNA: Not Applicable Instructions: Nausea and Vomiting, Adult, Sinus Headache, [id number] Forms: ED Department Discharge Care Plan Goals: The patient was advised of the examination and lab results during the visit. The patient was given a liter of IV fluids, IV Toradol and IV Benadryl while in the ED. The patient was discharged with a script for Zofran ODT (4 mg) #20 to take 1 by mouth every 6 hours as needed for nausea. The patient was encouraged to start her oral antibiotics today (please take after Zofran and food). If the patient has any additional symptoms or concerns, the patient should visit her primary care facility or return to the emergency department.
[2018-06-10 11:11] LABS: ANION GAP 11.3; CHLORIDE,CL 101 mmol/L (101-111); SODIUM,NA 135 mmol/L (135-145)
[2018-06-10] MEDS ORDERED: diphenhydrAMINE 50 MG/ML SDV IVPUSH ONE (11:29)
== END 2018-06-10 12:21 | disposition home or self-care (01) ==
LOC: DL.ED 09:41
DX: R11.2 Nausea with vomiting, unspecified (principal); R51 Headache; Z88.5 Allergy status to narcotic agent; Z91.011 Allergy to milk products
CPT/HCPCS: 36415; 80053; 85025; 96361; 96374; 96375; 99284; J1200; J1885; J2405; J7030

== ENCOUNTER 2019-06-23 17:32 | Emergency (ER) | payer BC, OTHER ==
[2019-06-23] MEDS ORDERED: Sodium Chloride 0.9% 10 ML Syringe FLUSH PRN (17:48)
[2019-06-23] MEDS ORDERED: Lactated Ringers 1,000 ML IV ONE (17:48)
[2019-06-23] MEDS ORDERED: diphenhydrAMINE 50 MG/ML SDV IVPUSH ONE (17:49)
[2019-06-23] MEDS ORDERED: Metoclopramide 10 MG/2 ML SDV IVPUSH ONE (17:49)
[2019-06-23 18:21] VITALS: PULSE 97
[2019-06-23 18:26] LABS: ANION GAP 12.9; CHLORIDE,CL 105 mmol/L (101-111); SODIUM,NA 136 mmol/L (135-145)
--- NOTE | 2019-06-23 18:58 | EDM.PDOC ---
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 2, Para 1,0-0,L1 by . She presents with intractable nausea and vomiting all day today. Unable to keep down any solids or liquids. She had an OB check by Dr. Peoples this week including OB ultrasound showing a single live IUP. Denies fever, chills, diarrhea, urinary symptoms, abnormal bleeding or discharge. Denies abdominal, flank or pelvic pain. She has been experiencing morning sickness for several weeks but this is the worst she has been. Onset: Today Duration: Constant Location: Reports: Abdomen Quality: Reports: Ache Severity: Severe Improves with: Reports: None Worsens with: Reports: None Associated Symptoms: Reports: No Other Symptoms - Related Data Allergies Allergy/AdvReac Type Severity Reaction Status Date / Time morphine Allergy Difficulty Verified 06/23/19 18:21 Breathing dairy Allergy Diarrhea Uncoded 06/09/18 15:19 Home Meds: Home Meds Acetaminophen [Tylenol Extra Strength] 500 mg PO ASDIRECTED PRN 01/03/18 [ History] Pnv No.122/Iron/Folic Acid [ Multi Tablet] 1 tab PO DAILY 06/23/19 [ History] Past Medical History HEENT History: Reports: Impaired Vision Other HEENT History: wears glasses, just got them a week ago Cardiovascular History: Reports: None Respiratory History: Reports: None Gastrointestinal History: Reports: Cholelithiasis, GERD Genitourinary History: Reports: Renal Calculus 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: , Other (See Below) Other TOMB MAKER HELPER History: hx ascus pap with hpv Musculoskeletal History: Reports: None Neurological History: Reports: Head Trauma Psychiatric History: Reports: None Endocrine/Metabolic History: Reports: Diabetes, Gestational Hematologic History: Reports: None, Anemia, Blood Transfusion(s) Other Hematologic History: lost blood with Immunologic History: Reports: None Oncologic (Cancer) History: Reports: None Dermatologic History: Reports: Other (See Below) Other Dermatologic History: acne, recurrent cold sores - Infectious Disease History Infectious Disease History: Reports: Chicken Pox - Past Surgical History Head Surgeries/Procedures: Reports: None GI Surgical History: Reports: Cholecystectomy Female Surgical History: Reports: Section, Lithotripsy/ESWL Social & Family History - Family History Cardiac: Reports: Afib, CAD, Heart Failure, High Cholesterol, Hypertension, [place] Respiratory: Reports: Asthma GI: Reports: Cholelithiasis Neurological: Reports: Cerebral Aneurysms, CVA Endocrine/Metabolic: Reports: Diabetes, type II Oncologic: Reports: Breast - Caffeine Use Caffeine Use: Reports: Coffee - Living Situation & Occupation Living situation: Reports: , with Family Occupation: Employed ED ROS GENERAL - Review of Systems Review Of Systems: ROS reveals no pertinent complaints other than HPI. ED EXAM - Physical Exam Exam: See Below Exam Limited By: No Limitations General Appearance: Alert, WD/WN, No Apparent Distress, Active Emesis (x1 in triage) Eye Exam: Bilateral Eye: EOMI, Normal Inspection, PERRL Ears: Normal External Exam, Normal Canal, Hearing Grossly Normal, Normal TMs Nose: Normal Inspection, Normal Mucosa, No Blood Throat/Mouth: Other (dry mouth) Head: Atraumatic, Normocephalic Neck: Normal Inspection, Supple, Non-Tender, Full Range of Motion Respiratory/Chest: No Respiratory Distress, Lungs Clear, Normal Breath Sounds, No Accessory Muscle Use, Chest Non-Tender Cardiovascular: Regular Rate, Rhythm, No Edema, Tachycardia GI/Abdominal Exam: Normal Bowel Sounds, Soft, No Organomegaly, No Distention, No Abnormal Bruit, Other (epigastric tenderness mild) Rectal Exam: Deferred (Female) Exam: Other (deferred) Back Exam: Normal Inspection, Full Range of Motion. No: CVA Tenderness (L), CVA Tenderness (R) Extremities: Normal Inspection, Normal Range of Motion, Non-Tender, Normal Capillary Refill, No Pedal Edema Neurological: Alert, Oriented, CN II-XII Intact, Normal Cognition, Normal Gait, No Motor/Sensory Deficits Psychiatric: Normal Affect, Normal Mood Skin Exam: Warm, Dry, Intact, Normal Color, No Rash Course - Vital Signs Last Recorded V/S: Last Vital Signs Temp 98.6 F 06/23/19 18:03 Pulse 97 06/23/19 18:03 Resp 16 06/23/19 18:03 BP 120/29 L 06/23/19 18:03 Pulse Ox 100 06/23/19 18:03 - Orders/Labs/Meds Orders: Active Orders 24 hr Category Date Time Status Peripheral IV Care [RC] . DIRECTED Care 06/23/19 17:48 Active UA RFX REEMA AND CULT IF INDIC [URIN] Stat Lab 06/23/19 17:48 Ordered Lactated Ringers [Ringers, Lactated] 1,000 ml Med 06/23/19 17:48 Active IV .BOLUS Sodium Chloride 0.9% [Saline Flush] Med 06/23/19 17:48 Active 10 ml FLUSH ASDIRECTED PRN Peripheral IV Insertion Adult [OM.PC] Stat Oth 06/23/19 17:47 Ordered Medication Orders Lactated Ringer's (Ringers, Lactated) 1,000 mls @ 999 mls/hr IV .BOLUS ONE Stop: 06/23/19 18:48 Last Admin: 06/23/19 17:56 Dose: 999 mls/hr Sodium Chloride (Saline Flush) 10 ml FLUSH ASDIRECTED PRN PRN Reason: Keep Vein Open Last Admin: 06/23/19 17:56 Dose: 10 ml Labs: Laboratory Tests 06/23/19 06/23/19 06/23/19 Range/Units 18:00 18:00 18:00 WBC 12.9 H (5.0-10.0) 10^3/uL RBC 4.71 (4.2-5.4) 10^6/uL Hgb 14.7 D (12.0-16.0) g/dL Hct 43.3 (37.0-47.0) % MCV 91.9 (80-100) fL MCH 31.2 (27.0-34.0) pg MCHC 33.9 (33.0-35.0) g/dL Plt Count 276 (150-450) 10^3/uL Neut % (Auto) 83.8 H (42.2-75.2) % Lymph % (Auto) 7.8 L (20.5-50.1) % [place] % (Auto) 6.7 (2-8) % Eos % (Auto) 1.6 (1.0-3.0) % Baso % (Auto) 0.1 (0.0-1.0) % Sodium 136 (135-145) mmol/L Potassium 3.9 (3.6-5.0) mmol/L Chloride 105 (101-111) mmol/L Carbon Dioxide 22.0 (21.0-31.0) mmol/L Anion Gap 12.9 BUN 7 (7-18) mg/dL Creatinine 0.4 L (0.6-1.3) mg/dL Est Cr Clr Drug Dosing 183.37 mL/min Estimated GFR (MDRD) > 60 BUN/Creatinine Ratio 17.50 Glucose 83 (74-105) mg/dL Calcium 8.7 (8.4-10.2) mg/dl Total Bilirubin 1.0 (0.2-1.0) mg/dL AST 33 (10-42) IU/L ALT 49 (10-60) IU/L Alkaline Phosphatase 62 (42-121) IU/L Total Protein 7.7 (6.7-8.2) g/dl Albumin 3.8 (3.2-5.5) g/dl Globulin 3.9 Albumin/Globulin Ratio 0.97 Amylase 60 (28-100) U/L Lipase 23 (22-51) U/L HCG, Quant > 1359 H (0-25) mIU/ml Beta HCG, Quant 570311 mIU/ml Meds: Medications Generic Name Dose Route Start Last Admin Trade Name Freq PRN Reason Stop Dose Admin Lactated Ringer's 1,000 mls @ 999 mls/hr 06/23/19 17:48 06/23/19 17:56 Ringers, Lactated IV 06/23/19 18:48 999 mls/hr .BOLUS ONE Administration Sodium Chloride 10 ml 06/23/19 17:48 06/23/19 17:56 Saline Flush FLUSH 10 ml ASDIRECTED PRN Administration Keep Vein Open Discontinued Medications Generic Name Dose Route Start Last Admin Trade Name Freq PRN Reason Stop Dose Admin Diphenhydramine HCl 25 mg 06/23/19 17:49 06/23/19 17:56 Benadryl IVPUSH 06/23/19 17:50 25 mg ONETIME ONE Administration Metoclopramide HCl 10 mg 06/23/19 17:49 06/23/19 17:56 Reglan IVPUSH 06/23/19 17:50 10 mg ONETIME ONE Administration - Re-Assessments/Exams Free Text/Narrative Re-Assessment/Exam: 06/23/19 18:50 Pt report feeling relief from her nausea and would like to try sipping ice water. Plan to d/c her home with Rx: Reglan 10mg for prn use. Departure - Departure Time of Disposition: 19:00 Disposition: Home, Self-Care 01 Condition: Good Clinical Impression: Hyperemesis gravidarum - Discharge Information *PRESCRIPTION DRUG MONITORING PROGRAM REVIEWED*: Not Applicable *COPY OF PRESCRIPTION DRUG MONITORING REPORT IN PATIENT KRISHNA: Not Applicable Instructions: Hyperemesis Gravidarum, Eating Plan for Hyperemesis Gravidarum Forms: ED Department Discharge Additional Instructions: Rx: Reglan (Metoclopramide) 10mg Follow up with Dr. Poeples as needed. Return to ER if worse at any time. - My Orders Last 24 Hours: My Active Orders 06/23/19 17:47 Peripheral IV Insertion Adult [OM.PC] Stat 06/23/19 17:48 Peripheral IV Care [RC] . DIRECTED UA RFX REEMA AND CULT IF INDIC [URIN] Stat Lactated Ringers [Ringers, Lactated] 1,000 ml IV .BOLUS Sodium Chloride 0.9% [Saline Flush] 10 ml FLUSH ASDIRECTED PRN - Assessment/Plan Last 24 Hours: My Active Orders 06/23/19 17:47 Peripheral IV Insertion Adult [OM.PC] Stat 06/23/19 17:48 Peripheral IV Care [RC] . DIRECTED UA RFX REEMA AND CULT IF INDIC [URIN] Stat Lactated Ringers [Ringers, Lactated] 1,000 ml IV .BOLUS Sodium Chloride 0.9% [Saline Flush] 10 ml FLUSH ASDIRECTED PRN I have read and agree with the documentation that has been completed regarding this visit. By signing this record, I attest that the documentation was completed in my physical presence and is an accurate record of the encounter.
[2019-06-23 19:27] VITALS: BP 118/72
== END 2019-06-23 19:18 | disposition home or self-care (01) ==
LOC: DL.ED 17:32
DX: O21.0 Mild hyperemesis gravidarum (principal); Z87.442 Personal history of urinary calculi; Z91.011 Allergy to milk products; Z88.5 Allergy status to narcotic agent; Z3A.10 10 weeks gestation of pregnancy
CPT/HCPCS: 36415; 80053; 82150; 83690; 84702; 85025; 96361; 96374; 96375; 99283; J1200; J2765; J7120

== ENCOUNTER 2019-09-09 20:15 | Emergency (ER) | payer BC ==
[2019-09-09 20:48] VITALS: BP 119/81; PULSE 76
[2019-09-09] MEDS ORDERED: Sodium Chloride 0.9% 1,000 ML IV SCH (22:00)
--- NOTE | 2019-09-09 22:06 | EDM.PDOC ---
ED HPI GENERAL MEDICAL PROBLEM - General Chief Complaint: Gastrointestinal Problem Stated Complaint: CHEST PAIN SHORTNESS OF BREATH 21 WEEKS Time Seen by Provider: 09/09/19 21:50 - History of Present Illness INITIAL COMMENTS - FREE TEXT/NARRATIVE: 3-year-old female who presents to the ER with complaints of shortness of breath 2 hours. Patient reports being diagnosed with the flu week ago and treated with Tamiflu. She reports fatigue, nausea and shortness of breath last began this evening. She admits to one episode of vomiting. Denies any fever or chills. Did admit to a cough that is gradually resolving. She reports symptoms are better than last week. She has been trying to push fluids and rest. She denies any headaches, abdominal pain or leaking of fluid at this time. Chest Pain Score (Numeric/FACES): 4 - Related Data Allergies Allergy/AdvReac Type Severity Reaction Status Date / Time morphine Allergy Difficulty Verified 06/23/19 18:21 Breathing dairy Allergy Diarrhea Uncoded 06/09/18 15:19 Home Meds: Home Meds Acetaminophen [Tylenol Extra Strength] 500 mg PO ASDIRECTED PRN 01/03/18 [ History] No122/Iron/Folic Acid [ Multi Tablet] 1 tab PO DAILY 06/23/19 [ History] Past Medical History HEENT History: Reports: Impaired Vision Other HEENT History: wears glasses, just got them a week ago Cardiovascular History: Reports: None Respiratory History: Reports: None Gastrointestinal History: Reports: Cholelithiasis, GERD Genitourinary History: Reports: Renal Calculus 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: , Other (See Below) 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 History: hx ascus pap with hpv Musculoskeletal History: Reports: None Neurological History: Reports: Head Trauma Psychiatric History: Reports: None Endocrine/Metabolic History: Reports: Diabetes, Gestational Hematologic History: Reports: None, Anemia, Blood Transfusion(s) Other Hematologic History: lost blood with Immunologic History: Reports: None Oncologic (Cancer) History: Reports: None Dermatologic History: Reports: Other (See Below) Other Dermatologic History: acne, recurrent cold sores - Infectious Disease History Infectious Disease History: Reports: Chicken Pox - Past Surgical History Head Surgeries/Procedures: Reports: None GI Surgical History: Reports: Cholecystectomy Female Surgical History: Reports: Section, Lithotripsy/ESWL Social & Family History - Family History Family Medical History: Noncontributory Cardiac: Reports: Afib, CAD, Heart Failure, High Cholesterol, Hypertension, [place] Respiratory: Reports: Asthma GI: Reports: Cholelithiasis Neurological: Reports: Cerebral Aneurysms, CVA Endocrine/Metabolic: Reports: Diabetes, type II Oncologic: Reports: Breast - Tobacco Use Smoking Status *Q: Never Smoker Second Hand Smoke Exposure: No - Caffeine Use Caffeine Use: Reports: Soda - Recreational Drug Use Recreational Drug Use: No - Living Situation & Occupation Living situation: Reports: , with Family Occupation: Employed ED ROS GENERAL - Review of Systems Review Of Systems: Comprehensive ROS is negative, except as noted in HPI. ED EXAM, GI/ABD - Physical Exam Exam: See Below Exam Limited By: No Limitations General Appearance: Alert, No Apparent Distress Eyes: Bilateral: Normal Appearance, EOMI Ears: Normal External Exam, Normal Canal, Hearing Grossly Normal, Normal TMs Nose: Normal Inspection, Normal Mucosa, No Blood Throat/Mouth: Normal Inspection, Normal Lips, Normal Teeth, Normal Gums, Normal Oropharynx, Normal Voice, No Airway Compromise Head: Atraumatic, Normocephalic Neck: Normal Inspection, Supple, Non-Tender, Full Range of Motion Respiratory/Chest: No Respiratory Distress, Lungs Clear, Normal Breath Sounds, No Accessory Muscle Use, Chest Non-Tender Cardiovascular: Normal Peripheral Pulses, Regular Rate, Rhythm, No Edema, No Gallop, No JVD, No Murmur, No Rub Extremities: Normal Inspection, Normal Range of Motion, Non-Tender, Normal Capillary Refill, No Pedal Edema Neurological: Alert, Oriented, CN II-XII Intact, Normal Cognition, Normal Gait, Normal Reflexes, No Motor/Sensory Deficits Psychiatric: Normal Affect, Normal Mood Skin Exam: Warm, Dry, Intact, Normal Color, No Rash Lymphatic: No Adenopathy Course - Vital Signs Last Recorded V/S: Last Vital Signs Temp 98.5 F 09/09/19 20:38 Pulse 76 09/09/19 20:38 Resp 16 09/09/19 20:38 BP 119/81 09/09/19 20:38 Pulse Ox 100 09/09/19 20:38 - Orders/Labs/Meds Labs: Laboratory Tests 09/09/19 09/09/19 Range/Units 21:45 21:45 WBC 5.5 (5.0-10.0) 10^3/uL RBC 3.99 L (4.2-5.4) 10^6/uL Hgb 12.6 D (12.0-16.0) g/dL Hct 36.6 L (37.0-47.0) % MCV 91.7 (80-100) fL MCH 31.6 (27.0-34.0) pg MCHC 34.4 (33.0-35.0) g/dL Plt Count 272 (150-450) 10^3/uL Neut % (Auto) 42.9 (42.2-75.2) % Lymph % (Auto) 39.8 (20.5-50.1) % [place] % (Auto) 15.1 H (2-8) % Eos % (Auto) 2.2 (1.0-3.0) % Baso % (Auto) 0.0 (0.0-1.0) % Add Manual Diff Yes Neutrophils % (Manual) 49 (42-75) % Band Neutrophils % 3 % Lymphocytes % (Manual) 33 (20-50) % Monocytes % (Manual) 13 H (2-8) % Eosinophils % (Manual) 2 (1-3) % Sodium 135 (135-145) mmol/L Potassium 3.4 L (3.6-5.0) mmol/L Chloride 103 (101-111) mmol/L Carbon Dioxide 23.0 (21.0-31.0) mmol/L Anion Gap 12.4 BUN 6 L (7-18) mg/dL Creatinine 0.4 L (0.6-1.3) mg/dL Est Cr Clr Drug Dosing 183.37 mL/min Estimated GFR (MDRD) > 60 BUN/Creatinine Ratio 15.00 Glucose 104 (74-105) mg/dL Calcium 8.1 L (8.4-10.2) mg/dl Total Bilirubin 0.5 (0.2-1.0) mg/dL AST 28 (10-42) IU/L ALT 30 (10-60) IU/L Alkaline Phosphatase 76 (42-121) IU/L Total Protein 6.6 L (6.7-8.2) g/dl Albumin 3.0 L (3.2-5.5) g/dl Globulin 3.6 Albumin/Globulin Ratio 0.83 Meds: Medications Discontinued Medications Generic Name Dose Route Start Last Admin Trade Name Freq PRN Reason Stop Dose Admin Sodium Chloride 1,000 mls @ 999 mls/hr 09/09/19 22:00 09/09/19 22:06 Normal Saline IV 999 mls/hr ASDIRECTED LORRAINE Administration - Re-Assessments/Exams Free Text/Narrative Re-Assessment/Exam: Review vital signs and lab results with patient. NS 1L administered. No signs of respiratory distress noted. SOB resolved. Encouraged potassium rich foods and follow up with PCP. Patient verbalized understanding. Departure - Departure Time of Disposition: 23:21 Disposition: Home, Self-Care 01 Condition: Fair Clinical Impression: SOB (shortness of breath), Nausea Fatigue Qualifiers: Fatigue type: postviral fatigue syndrome Qualified Code(s): G93.3 - Postviral fatigue syndrome Qualifiers: Weeks of gestation: 21 weeks Qualified Code(s): Z3A.21 - 21 weeks gestation of - Discharge Information *PRESCRIPTION DRUG MONITORING PROGRAM REVIEWED*: No *COPY OF PRESCRIPTION DRUG MONITORING REPORT IN PATIENT KRISHNA: No Instructions: Shortness of Breath, Adult, Nausea, Adult, [id number], Second Trimester of , [id number] Forms: ED Department Discharge Additional Instructions: Follow up with PCP in the clinic. Sepsis Event Note - Evaluation Sepsis Screening Result: No Definite Risk - Focused Exam Date Exam was Performed: 09/13/19 Time Exam was Performed: 23:42
[2019-09-09 22:16] LABS: ANION GAP 12.4; CHLORIDE,CL 103 mmol/L (101-111); SODIUM,NA 135 mmol/L (135-145)
== END 2019-09-09 23:51 | disposition home or self-care (01) ==
LOC: DL.ED 20:15
DX: O99.89 Other specified diseases and conditions complicating pregnancy, childbirth and the puerperium (principal); R06.02 Shortness of breath; R11.0 Nausea; O99.352 Diseases of the nervous system complicating pregnancy, second trimester; G93.3 Postviral and related fatigue syndromes; Z88.5 Allergy status to narcotic agent; Z91.011 Allergy to milk products; Z3A.21 21 weeks gestation of pregnancy
CPT/HCPCS: 36415; 80053; 85025; 96360; 99284; J7030

== ENCOUNTER 2023-05-08 06:46 | Emergency (ER) | payer BC ==
[2023-05-08] MEDS ORDERED: Ondansetron 4 MG Tab.DIS PO ONE ×2 (07:06→08:42)
[2023-05-08] MEDS ORDERED: Sodium Chloride 0.9% 10 ML Syringe FLUSH PRN (07:06)
[2023-05-08] MEDS ORDERED: Sodium Chloride 0.9% 1,000 ML IV ONE (07:06)
[2023-05-08 07:08] VITALS: BP 118/84; PULSE 83
[2023-05-08 07:19] LABS: BASOPHILS PERCENT AUTO 0.1 % (0.0-1.0); EOSINOPHILS PERCENT AUTO 0.5 % (1.0-3.0); HEMATOCRIT 42.8 % (37.0-47.0); HEMOGLOBIN 14.7 g/dL (12.0-16.0); MEAN CORPUSCULAR HEMOGLOBIN 31.5 pg (27.0-34.0); MEAN CORPUSCULAR HGB CONC 34.3 g/dL (33.0-35.0); MEAN CORPUSCULAR VOLUME 91.6 fL (80-100); MONOCYTES PERCENT AUTO 4.8 % (2-8); NEUTROPHILS PERCENT AUTO 91.6 % (42.2-75.2); PLATELET COUNT,PLT 298 10^3/uL (150-450); RED BLOOD CELL COUNT 4.67 10^6/uL (4.2-5.4); WHITE BLOOD CELL COUNT,WBC 15.3 10^3/uL (5.0-10.0)
[2023-05-08 07:28] LABS: APPEARANCE,URINE CLEAR (CLEAR); BILIRUBIN,URINE NEGATIVE (NEGATIVE); COLOR,URINE YELLOW (YELLOW); GLUCOSE,URINE NEGATIVE (NEGATIVE); KETONES,URINE 15 (NEGATIVE); LEUKOCYTE ESTERASE,URINE NEGATIVE (NEGATIVE); NITRITE,URINE NEGATIVE (NEGATIVE); OCCULT BLOOD,URINE NEGATIVE (NEGATIVE); PH,URINE 8.5 (5.0-9.0); PROTEIN,URINE 30 (NEGATIVE); UROBILINOGEN,URINE 0.2 mg/dL (0.2-1.0)
[2023-05-08 07:35] LABS: BACTERIA,URINE FEW /HPF (0-FEW/HPF); EPITHELIAL CELLS,URINE MODERATE /HPF (NOT SEEN); MUCUS,URINE RARE /LPF (NOT SEEN); RBC,URINE NOT SEEN /HPF (0-5); WBC,URINE 0-5 /HPF (0-5/HPF)
[2023-05-08] MEDS ORDERED: Iopamidol 612 MG/ML 100 ML Bottle IVPUSH ONE (07:37)
[2023-05-08 07:40] LABS: ALBUMIN 3.9 g/dL (3.4-5.0); ANION GAP 13.1 mEq/L (7-13); BILIRUBIN TOTAL 0.6 mg/dL (0.2-1.0); BUN/CREATININE RATIO 29.7 (No establ ref range); CALCIUM 8.7 mg/dL (8.5-10.1); CREATININE 0.64 mg/dL (0.55-1.02); EST CRCL DRUG DOSING (CG) 110.4 mL/min; POTASSIUM,K 4.1 mmol/L (3.5-5.1); PROTEIN TOTAL,TP 7.9 g/dL (6.4-8.2)
[2023-05-08] MEDS ORDERED: Piperacillin/Tazobactam 3.375 GM in Sodium Chloride 0.9% 100 ML IV ONE (07:42)
== END 2023-05-08 08:56 | disposition home or self-care (01) ==
LOC: DL.ED 06:46
DX: K52.9 Noninfective gastroenteritis and colitis, unspecified (principal); D72.825 Bandemia; Z91.011 Allergy to milk products; Z88.5 Allergy status to narcotic agent
CPT/HCPCS: 36415; 74177; 80053; 81001; 81025; 85025; 96365; 99284; 99284-25; A9270-GY; J2543; J3490; J7030; Q9967